=== PATIENT | female | born 1940 | race Caucasian/White ===

== ENCOUNTER 2016-08-24 13:50 | Emergency (ER) | payer MEDICARE ==
[2016-08-24] MEDS ORDERED: OXYCODONE HCL 5 MG TABLET PO ONE (14:18)
[2016-08-24 14:19] VITALS: TEMP 98.1; BMI 34.7
--- NOTE | 2016-08-24 14:30 | EDPRACDOC ---
- General Information Chief Complaint: Lower Extremity Injury Stated Complaint: LEG PAIN Time Seen by Provider: 08/24/16 14:04 Home Medications: Home Medications Amlodipine Besylate [Norvasc] 5 mg PO DAILY 02/20/16 Atorvastatin Calcium [Lipitor] 40 mg PO QHS 02/20/16 Citalopram Hydrobromide [Celexa] 20 mg PO DAILY 02/20/16 Gabapentin [Neurontin] 300 mg PO TID 02/20/16 Lisinopril [Prinivil] 2.5 mg PO DAILY 02/20/16 Lansoprazole [Prevacid] 30 mg PO DAILY 03/09/16 Aspirin (OrangeEnteric Coated) [Ecotrin] 325 mg PO DAILYWM #30 tablet 03/10/16 Beta-Carotene(A) W-C & E/Min [Ocuvite Tablet (1000IU/200mg/60IU)] 1 tab PO DAILY 05/07/16 Calcium 500 mg PO DAILY 05/07/16 Cholecalciferol (Vitamin D3) [Vitamin D3] 5,000 unit PO DAILY 05/07/16 Cyanocobalamin (Vitamin B-12) [Vitamin B-12] 1,000 mcg PO DAILY 05/07/16 Multivit-Min/FA/Lycopene/Lut [Centrum Silver Tablet] 1 tab PO DAILY 05/07/16 Acetaminophen Tablet [TYLENOL Tablet] 975 mg PO Q6H #60 tablet 05/12/16 Ferrous Sulfate [Iron] 325 mg PO DAILY 06/03/16 Oxycodone HCl [Oxycodone Immediate Release] 15 mg PO Q4H PRN 06/03/16 Carvedilol [Coreg] 6.25 mg PO BID #60 tablet 06/09/16 Docusate Sodium [Colace] 100 mg PO BID PRN #60 capsule 06/09/16 Nitroglycerin Sublingual Tab [NTG (NitroStat Sublingual Tab)] 0.4 mg SL PRN PRN #30 tablet 06/09/16 Furosemide [Lasix] 40 mg PO MOWEFR 08/24/16 Oxycodone HCl/Acetaminophen [Percocet 5-325 mg Tablet] 1 each PO Q4 #20 tablet 08/24/16 POTASSIUM CHLORIDE Tablet [K-DUR 20 mEq Tablet*] 20 meq PO MOWEFR 08/24/16 Allergies/Adverse Reactions: Allergies Allergy/AdvReac Type Severity Reaction Status Date / Time No Known Allergies Allergy Verified 06/03/16 16:33 - History of Present Illness HPI: PATIENT PRESENTS WITH A HX OF RIGHT ANKLE ORIF AFTER FRACTURE IN 03/07. APPARENTLY PATIENT HAD LOOSENING OF HARDWARE AND REQUIRED REVISION BY JARRETT IN 04/07. PATIENT STILL WEARS A BOOT. SHE STATES SHE FELT A POP WHILE TRYING TO TRANSFER TO TOILET THIS AM. PAIN ALONG ANTERIOR ANKLE ON THE RIGHT Circumstances: Reports: Spontaneous History of: Reports: Other (ANKLE ORIF) Last Tetanus: UTD Severity: Reports: Moderate Able to Bear Weight: Limited ED Past Medical History - History Reviewed Yes Nurses notes reviewed and agree except as marked Travel Outside of [place] in the Last 3 Months?: No - Patient Medical History Cardiac History: Reports: Hypertension, Congestive Heart Failure, Heart Attack ( [place] 2007), Hypercholesterolemia Respiratory History: Reports: COPD GI/ History: Reports: Renal Disease (CKD with creatinine raising from 1.5 range to 2.0 range throughout 2016.), Gastroesophageal Reflux Musculoskeletal History: Reports: Arthritis, Osteoarthritis Psychological History: Reports: Anxiety. Denies: Depression, Substance Use Disorder Systemic History: Reports: Anemia. Denies: Diabetes, Hyperthyroidism Surgical History: Reports: Cholecystectomy, Tonsillectomy/Adnoidectomy, Other - Family Medical History Reports: Hypertension (MOTHER), Diabetes (FATHER), Cancer (PATERNAL GP STOMACH CA, MATERNAL GP PROSTATE AND LIVER CA). Denies: Stroke, Cardiac Disorders - Social Medical History Smoking Status: Former smoker Social History: Denies: Substance Use Disorder ETOH: None Substance Abuse: None Lives With: Family Lives In: Home EDM Review of Systems - Review of Systems ROS Negative Except as Marked: Yes All systems reviewed and were negative except as marked Constitutional: No Symptoms Reported. negative: Fever, Chills, Weakness, Fatigue, Loss of Appetite Eyes: No Symptoms Reported. negative: Redness, Blurred Vision, Double Vision, Discharge, Pain, Light Sensitive, Photophobia Ears: No Symptoms Reported. negative: Pain, Hearing Loss, Drainage, Ear Pulling Throat: No Symptoms Reported. negative: Pain, Swelling Nose: No Symptoms Reported. negative: Congestion, Bleeding, Discharge, Injection, Swelling, Deformity, Ecchymosis, Tender, Abrasion, Laceration Mouth: No Symptoms Reported. negative: Pain, Drooling Respiratory: No Symptoms Reported. negative: Cough, Brassy Cough, Barky Cough, Shortness of Breath, Wheezing, Hemoptysis Cardiovascular: No Symptoms Reported. negative: Chest Pain, Palpitations, Syncope, Edema, Orthopnea, PND, Skin Mottling, Cyanosis Gastrointestinal: No Symptoms Reported. negative: Pain, Constipation, Nausea, Vomiting, Diarrhea, Melena, Formula Intolerance Genitourinary: No Symptoms Reported. negative: Dysuria, Hematuria, Frequency, Discharge, Bleeding, Testicular Pain, Neurological: No Symptoms Reported. negative: Headache, Dizziness, Seizure, Numbness, Weakness, Speech Difficulty, Gait Difficulty Musculoskeletal: Ankle, Leg. negative: Arm, Back, Chestwall, Elbow, Forearm, Femur, Foot, Hand, Hip, Knee, Neck, Pelvis, Ribs, Shoulder, Wrist Integumentary: No Symptoms Reported. negative: Itching, Rash, Bruising, Wound Allergic/Immunologic: No Symptoms Reported. negative: Hives, Itching Hematologic: No Symptoms Reported. negative: Lymphadenopathy, Easy Bruising, Easy Bleeding Endocrine: No Symptoms Reported. negative: Weight Gain, Weight Loss Psychiatric: No Symptoms Reported. negative: Anxiety, Depression, Hallucinations, Insomnia, Suicidal - Physical Exam Constitutional: Alert (Awake), No apparent distress Oriented to: Time, Person, Place Last recorded Vital Signs: Oxygen Pulse Oxygen Saturation O2 Device Oxygen Flow Rate Fraction of Inspired Oxygen ( FIO2) - HEENT Head: Normal ( normocephalic) Eye Exam: Normal (PERRL, EOMI, Sclera white) Oropharynx: Normal (Pharynx:Moist without exudate,Gums-no swelling) Tympanic Membrane: Normal ENT EAC: Normal TMJ: Normal Nose: No Symptoms Reported (septum midline) Neck: Normal (FROM, trachea at midline) - Respiratory/Cardiovascular Respiratory: Normal - CTA (BBS clear to auscultation without adventitious sounds ) Cardiovascular: Normal (RRR without murmur, gallop or rub) - GI Auscultation: Normal (NABS) Palpation: Normal (Soft,No rebound or guarding, non distended) Tenderness: Non tender Tobias's Sign: Negative - Musculoskeletal Back: Normal (Non-Tender) Extremities: Normal (Normal tone, Pulses 2+ No cyanosis or edema, FROM) - Integumentary Skin: Normal, Warm, Dry Lymphatics: Normal (no adenopathy) - Neurologic Memory Impaired: Normal Motor Function: Normal (Normal tone, Pulses 2+ No cyanosis or edema, FROM) Cranial Nerve: Normal (CN II-X11 intact sensation, strength 5/5) Cerebellar: Normal Mood Description: Normal Perception: Normal Decision Time to Discharge: 15:48 - Departure Yes I personally saw and evaluated the patient. Disposition: Home Condition: Stable Final Diagnosis: Leela-prosthetic fracture of proximal tibia Instructions: RICE: Routine Care for Injuries, Leg Fracture (ED) Education/Counseling Given To: Patient Education/Counseling Given Regarding: Diagnosis, Treatment, Prognosis, Follow Up Referrals: Sam Jiang MD [Primary Care Provider] - One Week Daniel Whitney MD [Staff Physician] - One Week Prescriptions: Oxycodone HCl/Acetaminophen [Percocet 5-325 mg Tablet] 1 each PO Q4 #20 tablet - Physician Consulted LABOR STANDARDS DIRECTOR Time Called: 15:01 Provider Called: Ernesto Addison Time Barrel Racer Returned Call: 15:01 (PUT IN POSTERIOR SPLINT) Other Time Called: 15:48 Provider Called: yahaira whitfield (discharge planning) Time Barrel Racer Returned Call: 15:48 (arrange halfway)
[2016-08-24] MEDS ORDERED: HYDROmorphone 1 MG INJECTION IM ONE (14:56)
--- NOTE | 2016-08-24 15:44 | DIRPT ---
CLINICAL DATA: Pop in lower leg wall moving bathroom chair. Pain in lower leg. Surgery in February and again May 2016. EXAM: RIGHT ANKLE - COMPLETE 3+ VIEW COMPARISON: 05/11/2016 FINDINGS: Hindfoot fusion with retrograde osiris extending through the calcaneus, talus, and tibia. Nondisplaced fracture of the tibia along the proximal margin of the osiris observed. This partially extends along the medial margin of the proximal screw. Heterotopic calcification along the resected distal fibula margin distally. Posterior malleolar fracture appears healed. Bony demineralization noted. IMPRESSION: 1. Acute nondisplaced fracture along the proximal margin of the intramedullary nail in the tibia. Electronically Signed By: Zuhair Connor M.D. On: 08/24/2016 15:41
--- NOTE | 2016-08-24 15:47 | DIRPT ---
CLINICAL DATA: Surgery in February in March. [place] a pop while moving today. Pain in mid tibia/ fibula. EXAM: RIGHT TIBIA AND FIBULA - 2 VIEW COMPARISON: Ankle CT of 06/04/2016. Tibia/fibula CT of 03/03/2016. Knee plain films of 02/20/2016. FINDINGS: AP and lateral views centered about the upper tibia/ fibula. Lateral and less so medial compartment knee osteoarthritis. Remote proximal fibular shaft fracture, which has undergone interval healing. Small knee joint effusion. Mild patellofemoral osteoarthritis. Incompletely imaged plate and screw fixation of the tibial shaft. Nondisplaced fracture about the superior aspect of the fixation device. IMPRESSION: Incompletely imaged tibial fixation. Nondisplaced acute fracture about the superior most aspect of the fixation device. Remote posttraumatic and degenerative changes as detailed above. Electronically Signed By: Ernesto Hernández M.D. On: 08/24/2016 15:44
[2016-08-24 18:07] VITALS: BP 126/58; PULSE 84
== END 2016-08-24 18:10 | disposition home or self-care (01) ==
LOC: ED 13:50
DX: M97.21XA Periprosthetic fracture around internal prosthetic right ankle joint, initial encounter (principal)
CPT/HCPCS: 73590; 73610; 99284; A9270; J1170; J3490

== ENCOUNTER 2016-09-21 14:58 | Inpatient (IN) | payer MEDICARE ==
[2016-09-21] MEDS ORDERED: SODIUM CHLORIDE 0.9% 3 ML FLUSH FLUSH PRN (15:10)
[2016-09-21 15:26] LABS: ALLEN'S TEST PASS; BEb 8.2 (+/- 2); TCO2 39.3 MMOL/L (23-27)
[2016-09-21 15:28] LABS: ABG Draw Site Right Brachial
[2016-09-21 15:29] LABS: AUTOMATED BASOPHIL 0.9 % (0-2); AUTOMATED EOSINOPHIL 2.3 % (0-5); AUTOMATED LYMPH 8.8 % (17-44); AUTOMATED MONOCYTE 0.5 % (3-10); AUTOMATED NEUTROPHIL 87.5 % (45-76); MPV 9.1 fL (7.4-10.4)
--- NOTE | 2016-09-21 15:30 | EDPRACDOC ---
- General Information Information Source: Patient Mode Of Arrival: Stretcher - History of Present Illness Onset: THIS AM HPI: Patient reports lower abdominal pain, nausea/vomiting, no diarrhea. Started around 4am. Patient denies urinary symptoms. No fever. Reports does feel slightly more SOB than usual - wears O2 at home @ 2L, on 3L here to maintain sats above 90%. Symptoms Occured: Reports: Spontaneous Pain Quality: Reports: Aching, Cramping Pain Location: Reports: Suprapubic Associated Signs & Symptoms: Reports: Nausea, Vomiting. Denies: Frequency, Diarrhea, Dysuria, Urgency, Chills Oral Intake: Normal Urinary Output: Normal <Mamta Morales - Last Filed: 09/21/16 15:55> <Ezra Herrera - Last Filed: 09/21/16 19:16> - General Information Chief Complaint: Nausea,Vomiting,Diarrhea Stated Complaint: N/V Time Seen by Provider: 09/21/16 15:09 Home Medications: Home Medications Atorvastatin Calcium [Lipitor] 40 mg PO QHS 02/20/16 Citalopram Hydrobromide [Celexa] 20 mg PO DAILY 02/20/16 Gabapentin [Neurontin] 300 mg PO TID 02/20/16 Lisinopril [Prinivil] 2.5 mg PO DAILY 02/20/16 Lansoprazole [Prevacid] 30 mg PO DAILY 03/09/16 Ferrous Sulfate [Iron] 325 mg PO DAILY 06/03/16 Docusate Sodium [Colace] 100 mg PO BID PRN #60 capsule 06/09/16 Furosemide [Lasix] 40 mg PO BID 08/24/16 POTASSIUM CHLORIDE Tablet [K-DUR 20 mEq Tablet*] 20 meq PO MOWEFR 08/24/16 Acetaminophen Tablet [TYLENOL Tablet] 650 mg PO Q4H PRN 09/21/16 Aspirin (Enteric Coated) [Ecotrin] 162 mg PO DAILY 09/21/16 Calcium Carbonate/Vitamin D3 [Oyster Shell Calcium-Vit D Tab] 1 tab PO BID 09/21 Multivitamin [One Daily] 1 tab PO DAILY 09/21/16 Nitroglycerin Sublingual Tab [NTG (NitroStat Sublingual Tab)] 0.4 mg SL Q5MX3 PRN 09/21/16 Oxycodone HCl [Oxycodone Immediate Release] 10 mg PO Q4H PRN 09/21/16 Allergies/Adverse Reactions: Allergies Allergy/AdvReac Type Severity Reaction Status Date / Time No Known Allergies Allergy Verified 09/21/16 15:29 - Treatment Prior to ED Arrival Reported Medications/Treatment BULK PICKER Treated With Medication BULK PICKER YES Medications BULK PICKER (Medication/ OXYCODONE 10MG-THIS AM Dose/Time) <Mamta Morales - Last Filed: 09/21/16 15:55> - Treatment Prior to ED Arrival Reported Medications/Treatment BULK PICKER Treated With Medication BULK PICKER YES Medications BULK PICKER (Medication/ OXYCODONE 10MG-THIS AM Dose/Time) <Ezra Herrera - Last Filed: 09/21/16 19:16> ED Past Medical History - History Reviewed Yes Nurses notes reviewed and agree except as marked - Patient Medical History Cardiac History: Reports: Hypertension, Congestive Heart Failure, Heart Attack ( [place] 2007), Hypercholesterolemia Respiratory History: Reports: COPD GI/ History: Reports: Renal Disease (CKD with creatinine raising from 1.5 range to 2.0 range throughout 2016.), Gastroesophageal Reflux Musculoskeletal History: Reports: Arthritis, Osteoarthritis Psychological History: Reports: Anxiety. Denies: Depression, Substance Use Disorder Systemic History: Reports: Anemia. Denies: Diabetes, Hyperthyroidism Surgical History: Reports: Cholecystectomy, Tonsillectomy/Adnoidectomy, Other - Family Medical History Reports: Hypertension (MOTHER), Diabetes (FATHER), Cancer (PATERNAL GP STOMACH CA, MATERNAL GP PROSTATE AND LIVER CA). Denies: Stroke, Cardiac Disorders - Social Medical History Smoking Status: Former smoker Social History: Denies: Substance Use Disorder ETOH: None <Marissa Moralesy Flako - Last Filed: 09/21/16 15:55> EDM Review of Systems - Review of Systems ROS Negative Except as Marked: Yes All systems reviewed and were negative except as marked Constitutional: No Symptoms Reported Eyes: No Symptoms Reported Ears: No Symptoms Reported Throat: No Symptoms Reported Nose: No Symptoms Reported Mouth: No Symptoms Reported Respiratory: Shortness of Breath Cardiovascular: No Symptoms Reported Gastrointestinal: Nausea, Pain, Vomiting. negative: Constipation, Diarrhea Genitourinary: No Symptoms Reported Neurological: No Symptoms Reported Musculoskeletal: No Symptoms Reported <Marissa Moralesy Flako - Last Filed: 09/21/16 15:55> - Physical Exam Constitutional: Alert (Awake), No apparent distress Oriented to: Time, Person, Place Last recorded Vital Signs: Last Vital Signs Temp 98.2 F 09/21/16 15:00 Pulse 82 09/21/16 15:24 Resp 20 09/21/16 15:24 BP 109/89 09/21/16 15:24 Pulse Ox 75 L 09/21/16 15:24 Oxygen Pulse Oxygen Saturation 75 O2 Device Nasal Cannula Oxygen Flow Rate 3 Fraction of Inspired Oxygen ( FIO2) - HEENT Head: Normal ( normocephalic) Eye Exam: Normal (PERRL, EOMI, Sclera white) Nose: No Symptoms Reported (septum midline) Neck: Normal (FROM, trachea at midline) - Respiratory/Cardiovascular Respiratory: Diminished Cardiovascular: Normal (RRR without murmur, gallop or rub) - GI Auscultation: Normal (NABS) Tenderness: Mild, Suprapubic - Musculoskeletal Back: Normal (Non-Tender) Extremities: Normal (Normal tone, Pulses 2+ No cyanosis or edema, FROM) - Integumentary Skin: Normal, Warm, Dry Lymphatics: Normal (no adenopathy) - Neurologic Memory Impaired: Normal Motor Function: Normal (Normal tone, Pulses 2+ No cyanosis or edema, FROM) Mood Description: Normal <Mamta Morales - Last Filed: 09/21/16 15:55> - Physical Exam Last recorded Vital Signs: Last Vital Signs Temp 98.2 F 09/21/16 15:00 Pulse 93 09/21/16 16:39 Resp 18 09/21/16 16:39 BP 78/51 L 09/21/16 16:39 Pulse Ox 98 09/21/16 16:39 Oxygen Pulse Oxygen Saturation 98 O2 Device BiPAP Oxygen Flow Rate 3 Fraction of Inspired Oxygen ( 60 FIO2) <Ezra Herrera - Last Filed: 09/21/16 19:16> - Results 09/21/16 15:15 09/21/16 15:15 - EKG EKG #1 EKG Time: 15:33 -: Yes EKG interpreted by me Rate: bpm: 73 [place]: Normal Rhythm: Junctional Block: None Comments: Unable to assess EKG dt poor quality d/t patient movement <Mamta Morlaes - Last Filed: 09/21/16 15:55> - Re-evaluation Re-evaluation 1 Re-evaluation Time: 17:20 PT AND FAMILY REPORT BEING ON HIGH FLOW O2 BY EMS DURING TRANSPORT. THIS MAY ACCOUNT FOR HER HYPERCAPNIA. WILL DECREASE O2 TO NASAL CANNULA AND OBTAIN CT ABDOMEN/PELVIS. - Results 09/21/16 15:15 09/21/16 15:15 WBC 2.7 xk/uL (3.8-10.8) L 09/21/16 15:15 RBC 4.05 xM/uL (4.20-5.40) L 09/21/16 15:15 Hgb 12.2 g/dL (12.0-16.0) 09/21/16 15:15 Hct 39.3 % (36-47) 09/21/16 15:15 MCV 97 fL (81-99) 09/21/16 15:15 MCH 30.2 pg (27-32) 09/21/16 15:15 MCHC 31.1 g/dl (33-36) L 09/21/16 15:15 RDW 16.4 % (11.5-14.5) H 09/21/16 15:15 Plt Count 125 xk/uL (130-400) L 09/21/16 15:15 MPV 9.1 fL (7.4-10.4) 09/21/16 15:15 Neut % (Auto) 87.5 % (45-76) H 09/21/16 15:15 Lymph % (Auto) 8.8 % (17-44) L 09/21/16 15:15 [place] % (Auto) 0.5 % (3-10) L 09/21/16 15:15 Eos % (Auto) 2.3 % (0-5) 09/21/16 15:15 Baso % (Auto) 0.9 % (0-2) 09/21/16 15:15 Absolute Neuts (auto) 2.35 xk/uL (1.7-8.2) 09/21/16 15:15 Absolute Lymphs (auto) 0.22 xk/uL (0.65-4.75) L 09/21/16 15:15 PT 10.7 SEC (9.2-11.2) 09/21/16 15:15 INR 1.0 09/21/16 15:15 APTT 20.5 SEC (22-35) L 09/21/16 15:15 Puncture Site Right brachial 09/21/16 15:20 pH 7.320 pH UNITS (7.35-7.45) L 09/21/16 15:20 pCO2 72.0 mmHg (35-45) H* 09/21/16 15:20 pO2 70.0 mmHg (80-100) L 09/21/16 15:20 HCO3 37.1 MMOL/L (22-26) H 09/21/16 15:20 Total CO2 39.3 MMOL/L (23-27) H 09/21/16 15:20 Base Excess 8.2 (+/- 2) H 09/21/16 15:20 FiO2 % 3 lpm 09/21/16 15:20 Specimen Drawn By Stana 09/21/16 15:20 Sodium 144 mEq/L (137-146) 09/21/16 15:15 Potassium 5.1 mEq/L (3.5-5.1) 09/21/16 15:15 Chloride 104 mEq/L (98-107) 09/21/16 15:15 Carbon Dioxide 32 mMOL/L (22-33) 09/21/16 15:15 Anion Gap 13 mEq/L (8-16) 09/21/16 15:15 BUN 33 MG/DL (7-17) H 09/21/16 15:15 Creatinine 1.30 MG/DL (0.52-1.04) H 09/21/16 15:15 Estimated GFR (MDRD) 40 mL/min (>=60) L 09/21/16 15:15 Glucose 118 MG/DL (70-99) H 09/21/16 15:15 Calculated Osmolality 285 MOs/Kg (270-290) 09/21/16 15:15 Lactic Acid 1.9 mEq/L (0.7-2.1) 09/21/16 15:15 Calcium 8.4 MG/DL (8.4-10.2) 09/21/16 15:15 Corrected Calcium 8.6 MG/DL (8.4-10.2) 09/21/16 15:15 Total Bilirubin 0.9 MG/DL (0.2-1.3) 09/21/16 15:15 AST 37 IU/L (14-36) H 09/21/16 15:15 ALT 30 IU/L (9-52) 09/21/16 15:15 Alkaline Phosphatase 150 IU/L (55-165) 09/21/16 15:15 Creatine Kinase 58 IU/L (30-134) 09/21/16 15:15 Troponin I < 0.01 ng/mL (<.04) 09/21/16 15:15 Total Protein 6.8 G/DL (6.3-8.2) 09/21/16 15:15 Albumin 3.8 G/DL (3.5-5.0) 09/21/16 15:15 Lipase 107 U/L (23-300) 09/21/16 15:15 Urine Color Yellow 09/21/16 15:54 Urine Clarity Clear 09/21/16 15:54 Urine pH 7.0 (5.0-8.0) 09/21/16 15:54 Ur Specific [place] 1.010 (1.003-1.035) 09/21/16 15:54 Urine Protein Neg (NEG/TRACE) 09/21/16 15:54 Urine Glucose (UA) Neg (NEGATIVE) 09/21/16 15:54 Urine Ketones Neg (NEGATIVE) 09/21/16 15:54 Urine Occult Blood Neg (NEG/TRACE) 09/21/16 15:54 Urine Nitrite Neg (NEGATIVE) 09/21/16 15:54 Urine Bilirubin Neg (NEGATIVE) 09/21/16 15:54 Urine Urobilinogen 0.2 MG/DL (0-1) 09/21/16 15:54 Ur Leukocyte Esterase Neg (NEGATIVE) 09/21/16 15:54 Urine RBC 0-2 (0-5) 09/21/16 15:54 Urine WBC 0-2 (0-5) 09/21/16 15:54 Hyaline Casts 2-5 (0-2) H 09/21/16 15:54 Urine Mucus Occ (NEG/OCC) 09/21/16 15:54 Lab Results 09/21/16 09/21/16 09/21/16 15:54 15:20 15:15 WBC RBC Hgb Hct MCV MCH MCHC RDW Plt Count MPV Neut % (Auto) Lymph % (Auto) [place] % (Auto) Eos % (Auto) Baso % (Auto) Absolute Neuts (auto) Absolute Lymphs (auto) PT INR APTT Puncture Site Right brachial pH 7.320 L pCO2 72.0 H* pO2 70.0 L HCO3 37.1 H Total CO2 39.3 H Base Excess 8.2 H FiO2 % 3 lpm Specimen Drawn By Stana Sodium Potassium Chloride Carbon Dioxide Anion Gap BUN Creatinine Estimated GFR (MDRD) Glucose Calculated Osmolality Lactic Acid Calcium Corrected Calcium Total Bilirubin AST ALT Alkaline Phosphatase Creatine Kinase Troponin I Total Protein Albumin Lipase 107 Urine Color Yellow Urine Clarity Clear Urine pH 7.0 Ur Specific [place] 1.010 Urine Protein Neg Urine Glucose (UA) Neg Urine Ketones Neg Urine Occult Blood Neg Urine Nitrite Neg Urine Bilirubin Neg Urine Urobilinogen 0.2 Ur Leukocyte Esterase Neg Urine RBC 0-2 Urine WBC 0-2 Hyaline Casts 2-5 H Urine Mucus Occ 09/21/16 09/21/16 09/21/16 15:15 15:15 15:15 WBC 2.7 L RBC 4.05 L Hgb 12.2 Hct 39.3 MCV 97 MCH 30.2 MCHC 31.1 L RDW 16.4 H Plt Count 125 L MPV 9.1 Neut % (Auto) 87.5 H Lymph % (Auto) 8.[address] [place] % (Auto) 0.5 L Eos % (Auto) 2.3 Baso % (Auto) 0.9 Absolute Neuts (auto) 2.35 Absolute Lymphs (auto) 0.22 L PT 10.7 INR 1.0 APTT 20.5 L Puncture Site pH pCO2 pO2 HCO3 Total CO2 Base Excess FiO2 % Specimen Drawn By Sodium Potassium Chloride Carbon Dioxide Anion Gap BUN Creatinine Estimated GFR (MDRD) Glucose Calculated Osmolality Lactic Acid 1.9 Calcium Corrected Calcium Total Bilirubin AST ALT Alkaline Phosphatase Creatine Kinase Troponin I Total Protein Albumin Lipase Urine Color Urine Clarity Urine pH Ur Specific [place] Urine Protein Urine Glucose (UA) Urine Ketones Urine Occult Blood Urine Nitrite Urine Bilirubin Urine Urobilinogen Ur Leukocyte Esterase Urine RBC Urine WBC Hyaline Casts Urine Mucus 09/21/16 15:15 WBC RBC Hgb Hct MCV MCH MCHC RDW Plt Count MPV Neut % (Auto) Lymph % (Auto) [place] % (Auto) Eos % (Auto) Baso % (Auto) Absolute Neuts (auto) Absolute Lymphs (auto) PT INR APTT Puncture Site pH pCO2 pO2 HCO3 Total CO2 Base Excess FiO2 % Specimen Drawn By Sodium 144 Potassium 5.1 Chloride 104 Carbon Dioxide 32 Anion Gap 13 BUN 33 H Creatinine 1.30 H Estimated GFR (MDRD) 40 L Glucose 118 H Calculated Osmolality 285 Lactic Acid Calcium 8.4 Corrected Calcium 8.6 Total Bilirubin 0.9 AST 37 H ALT 30 Alkaline Phosphatase 150 Creatine Kinase 58 Troponin I < 0.01 Total Protein 6.8 Albumin 3.8 Lipase Urine Color Urine Clarity Urine pH Ur Specific [place] Urine Protein Urine Glucose (UA) Urine Ketones Urine Occult Blood Urine Nitrite Urine Bilirubin Urine Urobilinogen Ur Leukocyte Esterase Urine RBC Urine WBC Hyaline Casts Urine Mucus <Ezra Herrera - Last Filed: 09/21/16 19:16> ED Critical Care Note - Critical Care Note Total Time (mins): 25 Comments: Due to the presence of and / or the risk of deterioration, my attendance to this patient required critical care time, including assessment/reassessment, documentation, ordering and interpreting ancillary studies, discussion with ED staff and consultants,patient and family, and excludes time spent on separately billable procedures. <Ezra Herrera - Last Filed: 09/21/16 19:16> <Mamta Morales - Last Filed: 09/21/16 15:55> - Departure Yes I personally saw and evaluated the patient. Disposition: Admit IP To This Hospital Decision to Admit Time: 18:30 Decision to admit date: 09/21/16 Decision to admit: from ED <Ezra Herrera - Last Filed: 09/21/16 19:16> - Departure Condition: Stable Final Diagnosis: Ruptured appendicitis, Renal mass, Pancreatic mass, Hypercapnic respiratory failure Referrals: None,No Provider [NonStaff] - One Week Prescriptions: No Action Lisinopril [Prinivil] 2.5 mg PO DAILY Citalopram Hydrobromide [Celexa] 20 mg PO DAILY Gabapentin [Neurontin] 300 mg PO TID Atorvastatin Calcium [Lipitor] 40 mg PO QHS Lansoprazole [Prevacid] 30 mg PO DAILY Ferrous Sulfate [Iron] 325 mg PO DAILY Docusate Sodium [Colace] 100 mg PO BID PRN #60 capsule PRN Reason: Stool Softener Furosemide [Lasix] 40 mg PO BID POTASSIUM CHLORIDE Tablet [K-DUR 20 mEq Tablet*] 20 meq PO MOWEFR Multivitamin [One Daily] 1 tab PO DAILY Aspirin (Enteric Coated) [Ecotrin] 162 mg PO DAILY Acetaminophen Tablet [TYLENOL Tablet] 650 mg PO Q4H PRN PRN Reason: Pain Oxycodone HCl [Oxycodone Immediate Release] 10 mg PO Q4H PRN PRN Reason: Pain Nitroglycerin Sublingual Tab [NTG (NitroStat Sublingual Tab)] 0.4 mg SL Q5MX3 PRN PRN Reason: Chest Pain Or Discomfort Calcium Carbonate/Vitamin D3 [Oyster Shell Calcium-Vit D Tab] 1 tab PO BID
[2016-09-21 15:42] LABS: BLOOD UREA NITROGEN 33 MG/DL (7-17); CALC CORRECTED 8.6 MG/DL (8.4-10.2); CALCIUM 8.4 MG/DL (8.4-10.2); CHLORIDE 104 mEq/L (98-107); CPK TOTAL WITH POSSIBLE MB 58 IU/L (30-134); GLUCOSE 118 MG/DL (70-99); PARTIAL THROMB. TIME 20.5 SEC (22-35); SODIUM LEVEL 144 mEq/L (137-146); TOTAL PROTEIN 6.8 G/DL (6.3-8.2)
[2016-09-21 15:49] LABS: CALCULATED OSMOLALITY 285 MOs/Kg (270-290)
[2016-09-21 16:19] LABS: RBC/URINE 0-2 (0-5)
[2016-09-21 16:20] LABS: LEUKOCYTES/URINE NEG (NEGATIVE); NITRITE/URINE NEG (NEGATIVE); URINE OCCULT BLOOD NEG (NEG/TRACE); WBC/URINE 0-2 (0-5)
[2016-09-21] MEDS: NS 1,000 ML IV ONE (16:24)
--- NOTE | 2016-09-21 16:43 | DIRPT ---
CLINICAL DATA: Shortness of breath, lower abdominal pain, nausea and vomiting beginning at 0400 hours, history hypertension, CHF, [place], former smoker EXAM: PORTABLE CHEST 1 VIEW COMPARISON: Portable exam 1614 hours compared to 08/25/2016 FINDINGS: Mild enlargement of cardiac silhouette. Mediastinal contours and pulmonary vascularity normal. Bronchitic changes without infiltrate, pleural effusion or pneumothorax. Bones demineralized. No free air under the diaphragms. IMPRESSION: Mild enlargement of cardiac silhouette. Mild bronchitic changes. Electronically Signed By: Pedro Hicks M.D. On: 09/21/2016 16:41
[2016-09-21] MEDS ORDERED: NS 1,000 ML IV ONE ×4 (16:51→22:15)
[2016-09-21] MEDS ORDERED: MORPHINE 4 MG/ML INJECTION IV ONE ×2 (16:51→18:05)
[2016-09-21] MEDS ORDERED: Pharmacy Review for Metformin - IV Contrast Given SCH (17:00)
[2016-09-21] MEDS ORDERED: SODIUM CHLORIDE 0.9% 3 ML FLUSH FLUSH SCH (18:00)
[2016-09-21 18:03] LABS: CPK TOTAL WITH POSSIBLE MB 40 IU/L (30-134)
--- NOTE | 2016-09-21 18:15 | DIRPT ---
CLINICAL DATA: 76-year-old female with lower abdominal pain with associated nausea vomiting and diarrhea for the past 12 hours. EXAM: CT ABDOMEN AND PELVIS WITH CONTRAST TECHNIQUE: Multidetector CT imaging of the abdomen and pelvis was performed using the standard protocol following bolus administration of intravenous contrast. CONTRAST: 70 mL of Isovue 370. COMPARISON: CT of the chest, abdomen and pelvis 02/21/2016. FINDINGS: Lower chest: Large hiatal hernia. Extensive atherosclerosis, including right coronary artery disease. Severe calcifications of the mitral annulus. Hepatobiliary: No cystic or solid hepatic lesions. Moderate intrahepatic biliary ductal dilatation. Common bile duct is dilated up to 2 cm in the jocelyne hepatis. Status post cholecystectomy. Pancreas: Severe pancreatic atrophy. Pancreatic parenchyma is largely replaced by multiple cystic appearing lesions throughout all aspects of the pancreas, the largest of which is in the superior aspect of the pancreatic head measuring up to 2.1 x 1.8 cm (image 26 of series 3). Multifocal side branch ectasia throughout the pancreas. Spleen: Unremarkable. Adrenals/Urinary Tract: Multiple low-attenuation nonenhancing lesions are noted in the kidneys bilaterally, the largest of which is exophytic in the upper pole of the left kidney measuring 7.3 x 6.1 x 8.1 cm, compatible with multiple simple cysts. There are several other smaller sub cm lesions which are too small to definitively characterize, but favored to represent tiny cysts. Tiny high attenuation lesion in the anterior aspect of the lower pole of the right kidney is similar to remote prior studies, apparently calcified and presumably benign. In addition, there is a 3.2 x 1.9 x 1.6 cm enhancing lesion with thick internal septation and nodularity in the anterior aspect of the upper pole of the right kidney (image 25 of series 3), concerning for renal neoplasm such as a renal cell carcinoma. 12 mm intermediate attenuation lesion in the lower pole of the left kidney does not appear to enhance, compatible with a proteinaceous cyst. No hydroureteronephrosis. Urinary bladder is completely decompressed with a Lehman balloon catheter in place. Stomach/Bowel: Intra abdominal portion of the stomach is unremarkable. No pathologic dilatation of small bowel or colon. The appendix appears dilated measuring up to 12 mm in diameter, and there are some surrounding inflammatory changes. Several small loculated gas are noted in the ileocolic mesenteries. Findings are concerning for perforated acute appendicitis. Diffuse haziness throughout the root of the small bowel mesenteric. Vascular/Lymphatic: Extensive atherosclerosis throughout the abdominal and pelvic vasculature, without evidence of aneurysm or dissection. Reproductive: Uterus and ovaries are unremarkable in appearance. Other: Small volume of ascites. Small volume of pneumoperitoneum. Umbilical hernia containing only omental fat. Musculoskeletal: High attenuation in the sacrum bilaterally, suggestive of prior sacroplasty. Old compression fractures of L1 and L3, most severe at L1 where there is approximately 80% loss of anterior vertebral body height and a mild acute kyphotic deformity. Sclerotic lesions with narrow zones of transition are noted in the right femoral head left side of the L3 vertebral body, right side of T11 vertebral body and in the left T11 pedicle, favored to represent bone islands. IMPRESSION: 1. Findings, as above, concerning for an acute perforated appendicitis with small volume of pneumoperitoneum and small volume of free fluid. Diffuse haziness throughout the small bowel mesentery concerning for developing peritonitis. Surgical consultation is strongly recommended at this time. 2. Moderate intrahepatic biliary ductal dilatation and severe extrahepatic biliary ductal dilatation. This is slightly worse than prior examinations, and may partially reflect benign post cholecystectomy physiology, however, the possibility of biliary tract obstruction should be considered and correlation with liver function tests is recommended. 3. 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 This could be further evaluated with followup nonemergent MRI of the abdomen with and without IV gadolinium with MRCP after the patient's acute illness has been resolved. 4. 3.2 x 1.9 x 1.6 cm enhancing lesion in the anterior aspect of the upper pole of the right kidney, concerning for renal cell carcinoma. This too could be further evaluated with followup nonemergent MRI of the abdomen with and without IV gadolinium after the patient's acute illness has been resolved. 5. Extensive atherosclerosis, including right coronary artery disease. 6. Large hiatal hernia. 7. Multiple cystic lesions in the kidneys bilaterally, as above. 8. Additional incidental findings, as above. These results were called by telephone at the time of interpretation on 09/21/2016 at 6:[address] LEX FIERRO DO, who verbally acknowledged these results. Electronically Signed By: Jordin Casillas M.D. On: 09/21/2016 18:12
[2016-09-21] MEDS ORDERED: PIPERACILLIN AND TAZOBACTAM 4.5 GM in D5W 100 ML IV ONE (18:34)
[2016-09-21] MEDS ORDERED: ACETAMINOPHEN 325 MG/TAB TABLET PO PRN (18:39)
[2016-09-21] MEDS ORDERED: PROMETHAZINE 25 MG/ML VIAL IV PRN ×2 (18:41→20:18)
[2016-09-21] MEDS ORDERED: NITROGLYCERINE 0.4 MG TAB SL PRN (18:41)
[2016-09-21] MEDS ORDERED: Non-Formulary Medication ITEM (Oxycodone Hcl [Oxycodone Immediate Release] 10 MG) PO PRN (18:41)
[2016-09-21] MEDS ORDERED: OXYCODONE HCL 5 MG TABLET PO PRN (18:47)
--- NOTE | 2016-09-21 18:47 | HISTPHYS ---
- Chief Complaint Abd Pain - History of Present Illness 76 YO WF brought to the ER with worsening shortness of breath as well as N/V and abdominal pain. The sequence of events is uncertain. Unable to get history from patient as she is obtunded. She is currently dehydrated and has a decreased WBC. She is in respiratory failure (hypercapnic). She has received IVF, IV antibiotics and was placed on BiPAP. CT scan has been reviewed. While her appendix is slightly enlarged, the amount of inflammation is minimal. There is some fluid but no evidence of obstruction. She is critically ill. No other history is available. - Medical History Cardiac History: Reports: Hypertension, Congestive Heart Failure, Heart Attack ( [place] 2007), Hypercholesterolemia Respiratory History: Reports: COPD GI/ History: Reports: Renal Disease (CKD with creatinine raising from 1.5 range to 2.0 range throughout 2016.), Gastroesophageal Reflux Musculoskeletal History: Reports: Arthritis, Osteoarthritis Systemic History: Reports: Anemia. Denies: Diabetes, Hyperthyroidism Psychological History: Reports: Anxiety. Denies: Depression, Substance Use Disorder - Surgical History Reports: Cholecystectomy, Tonsillectomy/Adnoidectomy, Other - Medictions/Allergies Allergies No Known Allergies Allergy (Verified 09/21/16 15:29) Home Medications Atorvastatin Calcium [Lipitor] 40 mg PO QHS 02/20/16 Citalopram Hydrobromide [Celexa] 20 mg PO DAILY 02/20/16 Gabapentin [Neurontin] 300 mg PO TID 02/20/16 Lisinopril [Prinivil] 2.5 mg PO DAILY 02/20/16 Lansoprazole [Prevacid] 30 mg PO DAILY 03/09/16 Ferrous Sulfate [Iron] 325 mg PO DAILY 06/03/16 Docusate Sodium [Colace] 100 mg PO BID PRN #60 capsule 06/09/16 Furosemide [Lasix] 40 mg PO BID 08/24/16 POTASSIUM CHLORIDE Tablet [K-DUR 20 mEq Tablet*] 20 meq PO MOWEFR 08/24/16 Acetaminophen Tablet [TYLENOL Tablet] 650 mg PO Q4H PRN 09/21/16 Aspirin (Enteric Coated) [Ecotrin] 162 mg PO DAILY 09/21/16 Calcium Carbonate/Vitamin D3 [Oyster Shell Calcium-Vit D Tab] 1 tab PO BID 09/21 Multivitamin [One Daily] 1 tab PO DAILY 09/21/16 Nitroglycerin Sublingual Tab [NTG (NitroStat Sublingual Tab)] 0.4 mg SL Q5MX3 PRN 09/21/16 Oxycodone HCl [Oxycodone Immediate Release] 10 mg PO Q4H PRN 09/21/16 - Family History Reports: Hypertension (MOTHER), Diabetes (FATHER), Cancer (PATERNAL GP STOMACH CA, MATERNAL GP PROSTATE AND LIVER CA). Denies: Stroke, Cardiac Disorders - Social History Smoking Status: Former smoker Social History: Denies: Substance Use Disorder - Review of Systems Yes Review of systems cannot be obtained due to the patient's medical condition (obtunded) - Physical Exam Vital Signs: Initial Vitals Temperature 98.2 F 09/21/16 15:00 Pulse Rate 76 09/21/16 15:00 Respiratory Rate 20 09/21/16 15:00 Blood Pressure 104/69 09/21/16 15:00 Pulse Oxygen Saturation 46 L 09/21/16 15:00 Constitutional: Other (obese, obtunded, in resp distress.) Oriented to: Unable to Test - HEENT Head: Normal. negative: Laceration, Swelling Eye: negative: Pale Conjunctiva, Scleral Icterus TMJ: negative: Crepitance, Tender Nose: negative: Congestion, Ecchymosis Respiratory: Diminished, Retractions, Rhonchi, Tachypnea, Other (agonal) Cardiovascular: Tachycardia. negative: Diastolic murmur, Systolic murmur - GI Auscultation: Normal Palpation: negative: Enlarged liver Tenderness: Mild, RLQ, Periumbilical (ventral hernia not completely reducible). negative: Guarding, Rebound - Musculoskeletal Back: negative: Ecchymosis, CVA Tenderness - Integumentary Skin: Warm, Dry, Rash (yeast/fungal rash on skin fold under pannus) - Neurologic Memory Impaired: Unable to Test Motor Function: Unable to Test - Lab Results labs reviewed. - Diagnostic Findings CT reviewed - Assessment/Plan (1) Acute respiratory failure with hypercapnia J96.02 - ACUTE RESPIRATORY FAILURE WITH HYPERCAPNIA Acute Present on Admission: Yes (2) Pancreatic mass K86.9 - DISEASE OF PANCREAS, UNSPECIFIED Chronic Present on Admission: Yes (3) Renal mass N28.89 - OTHER SPECIFIED DISORDERS OF KIDNEY AND URETER Chronic Present on Admission: Yes (4) Sepsis A41.9 - SEPSIS, UNSPECIFIED ORGANISM Acute Present on Admission: Yes (5) Appendicitis K37 - UNSPECIFIED APPENDICITIS Acute Present on Admission: Yes (6) Hernia, ventral K43.9 - VENTRAL HERNIA WITHOUT OBSTRUCTION OR GANGRENE Chronic Present on Admission: Yes (7) CHF (congestive heart failure) I50.9 - HEART FAILURE, UNSPECIFIED Chronic Present on Admission: Yes unspecified congestive heart failure type unspecified congestive heart failure chronicity I50.9 - Heart failure, unspecified (8) CAD (coronary artery disease) I25.10 - ATHSCL HEART DISEASE OF [place] CORONARY ARTERY W/O ANG PCTRS Chronic Present on Admission: Yes [place] artery [place] heart without angina I25.10 - Atherosclerotic heart disease of [place] coronary artery without angina pectoris Plan: Patient critically ill. Will need admission and resuscitation with IVF and IV antibiotics. If respiratory status does not improve, she will need intubation. While she will need to undergo appendectomy, she will need to improve prior to undergoing surgery. With her underlying CAD and CHF she is a poor surgical candidate in her current condition. She also has what appears to be changes consistent with renal cell cancer and probably a pancreatic malignancy. Will obtain medical consult to help with the management of her numerous medical issues.
[2016-09-21] MEDS ORDERED: Levofloxacin 500 mg/100 ml D5W 500 MG/100 ML RTU IV SCH (20:00)
--- NOTE | 2016-09-21 20:11 | HIMCONSMED ---
Consultation Date: 09/21/16 Requesting Physician: Andi Soares Consulting Doctor: Scooter Dixon Consult Reason: Medical Management PRIMARY CARE PROVIDER: Dr. Jiang Patient was followed by Dr. Villareal while she was in [facility] HPI: The patient is a 76 yo woman who presented to the emergency department via EMS due to acute distress and shortness of breath, along with abdominal pain, nausea , vomiting. She had severe right sided abdominal tenderness, and a CT of the abdomen revealed acute appendicitis with perforation. There are currently no family members here, and the patient is completely obtunded, so history is obtained from the medical record and from the emergency department staff. The patient was short of breath at home, and EMS was called. Patient was in respiratory distress and hypoxic, and was started on 100% non-rebreather. She continued to have respiratory distress, and in the emergency department, she was found to be in acute hypercapneic respiratory failure. She was started on BIPAP. She became hypotensive and was requiring IVF boluses. Her breathing and respiratory status improved so, she was weaned. Eventually she became more tachypneic again. Regarding her symptoms: Onset: possibly today. Duration: constant. Location: unknown if patient has abdominal pain. Character: abnormal breathing. Alleviated by: Nothing. Exacerbated by: Nothing. Associated Symptoms: Patient obtunded. None known. Treatments: none at home except usual medications. Chief Complaint: shortness of breath - Past Medical and Surgical History Cardiac History: Reports: Hypertension, Congestive Heart Failure (Diastolic. 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 Denies: Diabetes, Hyperthyroidism Musculoskeletal History: Reports: Arthritis (R ankle fx. Unable to walk.), Osteoarthritis Psychological History: Reports: Anxiety. Denies: Depression, Substance Use Disorder Past Surgical History: Reports: Cholecystectomy, Tonsillectomy/Adnoidectomy, Other (Dr. Whitney: R ankle implant 02/2016, removed 04/2016.) OTHER HISTORY: ECHOCARDIOGRAM 06/03/16: EF 60-65% FINDINGS ------- Procedure:2D images, m-mode, color and spectral Doppler were obtained and reviewed. ECG rhythm:Sinus rhythm. Study quality:This was a technically difficult study with suboptimal views. Left Ventricle:The left ventricular size is normal. Left ventricular wall thickness is normal. There is normal global left ventricular contractility. Overall left ventricular systolic function is normal with, an EF between 60 - 65 %. Right Ventricle:The right ventricle is normal in size and function. Left Atrium:The left atrium is mildly dilated. Right Atrium:The right atrium is normal in size and function. Aortic Valve:The aortic valve is trileaflet and appears structurally normal. There is mild aortic valve sclerosis. Trace to mild aortic regurgitation. The aortic pressure half-time by doppler is 746ms. Mitral Valve:Normal appearing mitral valve. Mild mitral annular calcification present. There is trace mitral regurgitation. Tricuspid Valve:The tricuspid valve appears structurally normal. Mild tricuspid regurgitation present. The right ventricular systolic pressure, as measured by Doppler, is 41mmHg. Pulmonic Valve:The pulmonic valve is normal. There is no pulmonic regurgitation present. Aorta:The aortic root, ascending aorta and aortic arch appear normal. IVC:Normal inferior vena cava with normal inspiratory collapse. Pericardium:There is no pericardial effusion. CONCLUSIONS 1. This was a technically difficult study with suboptimal views. 2. The left ventricular size is normal. 3. Overall left ventricular systolic function is normal with, an EF between 60 - 65 %. 4. The left atrium is mildly dilated. 5. Trace to mild aortic regurgitation. 6. Mild tricuspid regurgitation present. Note: patient has a history of CHF: had ischemic cardiomyopathy with EF 40% in 2007. Allergies No Known Allergies Allergy (Verified 09/21/16 15:29) Home Medications Atorvastatin Calcium [Lipitor] 40 mg PO QHS 02/20/16 Citalopram Hydrobromide [Celexa] 20 mg PO DAILY 02/20/16 Gabapentin [Neurontin] 300 mg PO TID 02/20/16 Lisinopril [Prinivil] 2.5 mg PO DAILY 02/20/16 Lansoprazole [Prevacid] 30 mg PO DAILY 03/09/16 Ferrous Sulfate [Iron] 325 mg PO DAILY 06/03/16 Docusate Sodium [Colace] 100 mg PO BID PRN #60 capsule 06/09/16 Furosemide [Lasix] 40 mg PO BID 08/24/16 POTASSIUM CHLORIDE Tablet [K-DUR 20 mEq Tablet*] 20 meq PO MOWEFR 08/24/16 Acetaminophen Tablet [TYLENOL Tablet] 650 mg PO Q4H PRN 09/21/16 Aspirin (Enteric Coated) [Ecotrin] 162 mg PO DAILY 09/21/16 Calcium Carbonate/Vitamin D3 [Oyster Shell Calcium-Vit D Tab] 1 tab PO BID 09/21 Multivitamin [One Daily] 1 tab PO DAILY 09/21/16 Nitroglycerin Sublingual Tab [NTG (NitroStat Sublingual Tab)] 0.4 mg SL [id number] PRN 09/21/16 Oxycodone HCl [Oxycodone Immediate Release] 10 mg PO Q4H PRN 09/21/16 - Social History Travel Outside of [place] in the Last 3 Months?: No Smoking Status: Former smoker (quit over 25 years ago.) Social History: Denies: Alcohol Use, Substance Use Disorder - Family History Reports: Hypertension (MOTHER), Diabetes (FATHER), Cancer (PATERNAL GP STOMACH CA, MATERNAL GP PROSTATE AND LIVER CA). Denies: Stroke, Cardiac Disorders - Physical Exam Vital Signs: Initial Vitals Temperature 98.2 F 09/21/16 15:00 Pulse Rate 76 09/21/16 15:00 Respiratory Rate 20 09/21/16 15:00 Blood Pressure 104/69 09/21/16 15:00 Pulse Oxygen Saturation 46 L 09/21/16 15:00 Vital Signs - 24 hr 09/21/16 09/21/16 09/21/16 15:00 15:24 15:39 Temperature 98.2 F Pulse Rate 76 82 74 Respiratory 20 20 16 Rate Blood Pressure 104/69 109/89 109/89 Pulse Oxygen 46 L 75 L 95 Saturation 09/21/16 09/21/16 09/21/16 15:57 16:04 16:09 Temperature Pulse Rate 74 73 73 Respiratory 28 H 18 Rate Blood Pressure 80/52 L 76/46 L 97/53 L Pulse Oxygen 97 97 95 Saturation 09/21/16 09/21/16 09/21/16 16:18 16:39 17:45 Temperature Pulse Rate 93 78 Respiratory 24 18 Rate Blood Pressure 78/51 L 91/50 L Pulse Oxygen 88 L 98 96 Saturation 09/21/16 09/21/16 09/21/16 17:55 18:49 19:20 Temperature Pulse Rate 79 78 77 Respiratory 22 22 Rate Blood Pressure 94/78 L 96/58 L 83/59 L Pulse Oxygen 96 100 88 L Saturation Weight: 92.5 kg Height: 5 feet 2 inches BMI: 37.3 - Other Exam Other Exam Findings: GENERAL: Ill-appearing, obese, in acute distress. HEENT: Normocephalic, atraumatic; pupils equal and round. Nares patent, without discharge or bleeding. No oropharyngeal lesions or erythema. Mucous membranes are dry. NECK: is supple, no masses, trachea midline. Large neck circumference. RESPIRATORY: Clear to auscultation bilaterally. Chest wall movements are symmetric. No use of accessory muscles to breathe. Tachypnea witnessed to up to 42 breaths per minute. Irregular breathing pattern somewhat agonal. Decreased breath sounds bilaterally. No wheezing, rales, rhonchi. CARDIOVASCULAR: Normal S1, S2. No murmurs. rubs, or gallops. PMI non-displaced. Carotids: no carotid bruits. Tachycardia. DP pulse 1+ on left, right unobtainable due to patient's leg and foot in a cast. Radial pulses 2+ bilaterally. Cap refill somewhat delayed. GI: soft, non-distended, normal active bowel sounds. No hepatosplenomegaly. Hernia noted in periumbilical area to the right. Marked tenderness in right lower quadrant and moderate tenderness in right upper quadrant. INTEGUMENT: Clean, dry, and intact. MUSCULOSKELETAL: Moving all extremities. No cyanosis. No clubbing. Edema: trace lower extremity edema bilaterally. Right lower leg and foot in a cast. NEUROLOGICAL: Cranial nerves 2-12 grossly intact, as best can be determined in this somnolent to obtunded patient. Reflexes: 2+ bilaterally. Babinski: toe downgoing on left, unable to test on right due to leg and foot in a cast. PSYCHIATRIC: Not oriented. Somnolent to obtunded. Not following commands. Did awaken and was clearly in pain when the right side of her abdomen was palpated. LYMPHATIC: No cervical lymphadenopathy. No supraclavicular lymphadenopathy. - Lab Results Laboratory Results - last 24 hr 09/21/16 09/21/16 09/21/16 15:15 15:15 15:15 WBC 2.7 L RBC 4.05 L Hgb 12.2 Hct 39.3 MCV 97 MCH 30.2 MCHC 31.1 L RDW 16.4 H Plt Count 125 L MPV 9.1 Neut % (Auto) 87.5 H Lymph % (Auto) 8.8 L [place] % (Auto) 0.5 L Eos % (Auto) 2.3 Baso % (Auto) 0.9 Absolute Neuts (auto) 2.35 Absolute Lymphs (auto) 0.22 L PT INR APTT Puncture Site pH pCO2 pO2 HCO3 Total CO2 Base Excess FiO2 % Specimen Drawn By Sodium 144 Potassium 5.1 Chloride 104 Carbon Dioxide 32 Anion Gap 13 BUN 33 H Creatinine 1.30 H Estimated GFR (MDRD) 40 L Glucose 118 H Calculated Osmolality 285 Lactic Acid 1.9 Calcium 8.4 Corrected Calcium 8.6 Total Bilirubin 0.9 AST 37 H ALT 30 Alkaline Phosphatase 150 Creatine Kinase 58 Troponin I < 0.01 Total Protein 6.8 Albumin 3.8 Lipase Urine Color Urine Clarity Urine pH Ur Specific [place] Urine Protein Urine Glucose (UA) Urine Ketones Urine Occult Blood Urine Nitrite Urine Bilirubin Urine Urobilinogen Ur Leukocyte Esterase Urine RBC Urine WBC Hyaline Casts Urine Mucus 09/21/16 09/21/16 09/21/16 15:15 15:15 15:20 WBC RBC Hgb Hct MCV MCH MCHC RDW Plt Count MPV Neut % (Auto) Lymph % (Auto) [place] % (Auto) Eos % (Auto) Baso % (Auto) Absolute Neuts (auto) Absolute Lymphs (auto) PT 10.7 INR 1.0 APTT 20.5 L Puncture Site Right brachial pH 7.320 L pCO2 72.0 H* pO2 70.0 L HCO3 37.1 H Total CO2 39.3 H Base Excess 8.2 H FiO2 % 3 lpm Specimen Drawn By Stana Sodium Potassium Chloride Carbon Dioxide Anion Gap BUN Creatinine Estimated GFR (MDRD) Glucose Calculated Osmolality Lactic Acid Calcium Corrected Calcium Total Bilirubin AST ALT Alkaline Phosphatase Creatine Kinase Troponin I Total Protein Albumin Lipase 107 Urine Color Urine Clarity Urine pH Ur Specific [place] Urine Protein Urine Glucose (UA) Urine Ketones Urine Occult Blood Urine Nitrite Urine Bilirubin Urine Urobilinogen Ur Leukocyte Esterase Urine RBC Urine WBC Hyaline Casts Urine Mucus 09/21/16 09/21/16 15:54 17:45 WBC RBC Hgb Hct MCV MCH MCHC RDW Plt Count MPV Neut % (Auto) Lymph % (Auto) [place] % (Auto) Eos % (Auto) Baso % (Auto) Absolute Neuts (auto) Absolute Lymphs (auto) PT INR APTT Puncture Site pH pCO2 pO2 HCO3 Total CO2 Base Excess FiO2 % Specimen Drawn By Sodium Potassium Chloride Carbon Dioxide Anion Gap BUN Creatinine Estimated GFR (MDRD) Glucose Calculated Osmolality Lactic Acid Calcium Corrected Calcium Total Bilirubin AST ALT Alkaline Phosphatase Creatine Kinase 40 Troponin I < 0.01 Total Protein Albumin Lipase Urine Color Yellow Urine Clarity Clear Urine pH 7.0 Ur Specific [place] 1.010 Urine Protein Neg Urine Glucose (UA) Neg Urine Ketones Neg Urine Occult Blood Neg Urine Nitrite Neg Urine Bilirubin Neg Urine Urobilinogen 0.2 Ur Leukocyte Esterase Neg Urine RBC 0-2 Urine WBC 0-2 Hyaline Casts 2-5 H Urine Mucus Occ - Diagnostic Findings DIAGNOSTIC DATA: EK bpm. Sinus rhythm. Low voltage QRS. Reviewed EKG personally. IMAGING: Chest x-ray, viewed personally: EXAM: PORTABLE CHEST 1 VIEW COMPARISON: Portable exam 1614 hours compared to 08/25/2016 FINDINGS: Mild enlargement of cardiac silhouette. Mediastinal contours and pulmonary vascularity normal. Bronchitic changes without infiltrate, pleural effusion or pneumothorax. Bones demineralized. No free air under the diaphragms. IMPRESSION: Mild enlargement of cardiac silhouette. Mild bronchitic changes. CT abdomen and pelvis: EXAM: CT ABDOMEN AND PELVIS WITH CONTRAST TECHNIQUE: Multidetector CT imaging of the abdomen and pelvis was performed using the standard protocol following bolus administration of intravenous contrast. CONTRAST: 70 mL of Isovue 370. COMPARISON: CT of the chest, abdomen and pelvis 02/21/2016. FINDINGS: Lower chest: Large hiatal hernia. Extensive atherosclerosis, including right coronary artery disease. Severe calcifications of the mitral annulus. Hepatobiliary: No cystic or solid hepatic lesions. Moderate intrahepatic biliary ductal dilatation. Common bile duct is dilated up to 2 cm in the jocelyne hepatis. Status post cholecystectomy. Pancreas: Severe pancreatic atrophy. Pancreatic parenchyma is largely replaced by multiple cystic appearing lesions throughout all aspects of the pancreas, the largest of which is in the superior aspect of the pancreatic head measuring up to 2.1 x 1.8 cm (image 26 of series 3). Multifocal side branch ectasia throughout the pancreas. Spleen: Unremarkable. Adrenals/Urinary Tract: Multiple low-attenuation nonenhancing lesions are noted in the kidneys bilaterally, the largest of which is exophytic in the upper pole of the left kidney measuring 7.3 x 6.1 x 8.1 cm, compatible with multiple simple cysts. There are several other smaller sub cm lesions which are too small to definitively characterize, but favored to represent tiny cysts. Tiny high attenuation lesion in the anterior aspect of the lower pole of the right kidney is similar to remote prior studies, apparently calcified and presumably benign. In addition, there is a 3.2 x 1.9 x 1.6 cm enhancing lesion with thick internal septation and nodularity in the anterior aspect of the upper pole of the right kidney (image 25 of series 3), concerning for renal neoplasm such as a renal cell carcinoma. 12 mm intermediate attenuation lesion in the lower pole of the left kidney does not appear to enhance, compatible with a proteinaceous cyst. No hydroureteronephrosis. Urinary bladder is completely decompressed with a Lehman balloon catheter in place. Stomach/Bowel: Intra abdominal portion of the stomach is unremarkable. No pathologic dilatation of small bowel or colon. The appendix appears dilated measuring up to 12 mm in diameter, and there are some surrounding inflammatory changes. Several small loculated gas are noted in the ileocolic mesenteries. Findings are concerning for perforated acute appendicitis. Diffuse haziness throughout the root of the small bowel mesenteric. Vascular/Lymphatic: Extensive atherosclerosis throughout the abdominal and pelvic vasculature, without evidence of aneurysm or dissection. Reproductive: Uterus and ovaries are unremarkable in appearance. Other: Small volume of ascites. Small volume of pneumoperitoneum. Umbilical hernia containing only omental fat. Musculoskeletal: High attenuation in the sacrum bilaterally, suggestive of prior sacroplasty. Old compression fractures of L1 and L3, most severe at L1 where there is approximately 80% loss of anterior vertebral body height and a mild acute kyphotic deformity. Sclerotic lesions with narrow zones of transition are noted in the right femoral head left side of the L3 vertebral body, right side of T11 vertebral body and in the left T11 pedicle, favored to represent bone islands. IMPRESSION: 1. Findings, as above, concerning for an acute perforated appendicitis with small volume of pneumoperitoneum and small volume of free fluid. Diffuse haziness throughout the small bowel mesentery concerning for developing peritonitis. Surgical consultation is strongly recommended at this time. 2. Moderate intrahepatic biliary ductal dilatation and severe extrahepatic biliary ductal dilatation. This is slightly worse than prior examinations, and may partially reflect benign post cholecystectomy physiology, however, the possibility of biliary tract obstruction should be considered and correlation with liver function tests is recommended. 3. 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 This could be further evaluated with followup nonemergent MRI of the abdomen with and without IV gadolinium with MRCP after the patient's acute illness has been resolved. 4. 3.2 x 1.9 x 1.6 cm enhancing lesion in the anterior aspect of the upper pole of the right kidney, concerning for renal cell carcinoma. This too could be further evaluated with followup nonemergent MRI of the abdomen with and without IV gadolinium after the patient's acute illness has been resolved. 5. Extensive atherosclerosis, including right coronary artery disease. 6. Large hiatal hernia. 7. Multiple cystic lesions in the kidneys bilaterally, as above. 8. Additional incidental findings, as above. These results were called by telephone at the time of interpretation on 09/21/2016 at 6:[address] LEX FIERRO DO, who verbally acknowledged these results. - Assessment (1) Sepsis A41.9 - SEPSIS, UNSPECIFIED ORGANISM Acute Present on Admission: Yes Present on admission. Criteria: Pulse 93. WBCs 2.7. Source: Most likely due to appendicitis/abdominal infection. Plan: Sepsis order set. IV antibiotics: IV Zosyn, IV Flagyl. Levaquin was given in the emergency department. IV fluids to provide volume. Monitor for signs of volume depletion, monitor blood pressure carefully. If still hypotensive with IV fluids consider pressors. Close monitoring. Telemetry. IVF: initial IVF 30 mL/kg x 1, then 250 mL/hr x 1 L, then maintenance IVF. Per Dr. Soares, favor bolus fluids over pressors, but if pressor is needed, he prefers to use William-Synephrine. (2) Acute respiratory failure with hypercapnia J96.02 - ACUTE RESPIRATORY FAILURE WITH HYPERCAPNIA Acute Present on Admission: Yes Patient presented due to shortness of breath and arrived by EMS on 100% non- rebreather. Initial ABG showed hypercapnic respiratory failure, with a pCO2 of 72. She was started on BiPAP in the emergency department, and her numbers improved, so she was placed back on nasal cannula. She then worsened again, and ABG revealed pCO2 of 77 PO2 of 64. Patient was restarted on BiPAP. Plan: BiPAP 16/8. Titrate FiO2 as needed. (3) Ruptured appendicitis K35.2 - ACUTE APPENDICITIS WITH GENERALIZED PERITONITIS Acute Present on Admission: Yes CT of the abdomen/pelvis revealed: "Findings concerning for an acute perforated appendicitis with small volume of pneumoperitoneum and small volume of free fluid. Diffuse haziness throughout the small bowel mesentery concerning for developing peritonitis." Discussed case in detail with Dr. Soares. He reports that while the patient could have appendicitis, she could also have other causes for her abdominal findings. He reports that the patient is too unstable to consider surgery at this time. He recommended IV antibiotics and IV fluids for initial approach. Plan: Admit to ICU. Patient is critically ill and too unstable for surgery. Would not be likely to survive surgery. Cultures ordered. IV antibiotics of IV Zosyn and IV Flagyl. IVF boluses. Prognosis is poor. (4) Thrombocytopenia D69.6 - THROMBOCYTOPENIA, UNSPECIFIED Acute Present on Admission: Yes Mild. Plan: Monitor CBC. (5) Hypotension I95.9 - HYPOTENSION, UNSPECIFIED Acute Present on Admission: Yes Qualifiers: Hypotension type: unspecified hypotension type Qualified Code(s): I95.9 - Hypotension, unspecified Most likely due to sepsis, but could be multifactorial. Patient could also have volume depletion. Plan: IVFs - bolus. If no improvement consider pressors. Per Dr. Soares, favor bolus fluids over pressors, but if pressor is needed, he prefers to use William-Synephrine (6) Metabolic encephalopathy G93.41 - METABOLIC ENCEPHALOPATHY Acute Present on Admission: Yes May be due to hypercapnia, sepsis or other cause. Plan: Search for and address underlying causes. NPO until speech therapy evaluation. 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 This could be further evaluated with followup nonemergent MRI of the abdomen with and without IV gadolinium with MRCP after the patient's acute illness has been resolved." Plan: Patient's family was informed of results by the emergency deparment physician. Patient is acutely ill with a poor prognosis and is in danger of dying. If she does survive her current illness, could consider further evaluation of the possible pancreatic malignancy. 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 This too could be further evaluated with followup nonemergent MRI of the abdomen with and without IV gadolinium after the patient's acute illness has been resolved." Plan: Patient's family was informed of results by the emergency deparment physician. Patient is acutely ill with a poor prognosis and is in danger of dying. If she does survive her current illness, could consider further evaluation of the mass. (9) Acquired dilation of bile duct K83.8 - OTHER SPECIFIED DISEASES OF BILIARY TRACT Acute Present on Admission: Yes Other findings on CT: "Moderate intrahepatic biliary ductal dilatation and severe extrahepatic biliary ductal dilatation. This is slightly worse than prior examinations, and may partially reflect benign post cholecystectomy physiology, however, the possibility of biliary tract obstruction should be considered and correlation with liver function tests is recommended." Plan: Management per Dr. Soares. - Plan In summary, this patient is acutely and critically ill. The patient requires treatment of vital organ failure and measures to prevent further life- threatening deterioration of condition. Reviewed old records. Discussed case in detail with emergency department physician and with general surgeon. I have spent 70 min in the critical care of this patient. Case Care Discussed with: Patient, Other (Emergency department physician and general surgeon.) Total Time: 70 min Critical Care: Yes Code: 291
[2016-09-21] MEDS ORDERED: GUAIFEN 100 MG-DEXTROMETH 10 MG PER 5 ML PO PRN (20:18)
[2016-09-21] MEDS ORDERED: BENZONATATE 100 MG PERLES PO PRN (20:18)
[2016-09-21] MEDS ORDERED: TEMAZEPAM 15 MG CAP PO PRN (20:18)
[2016-09-21] MEDS ORDERED: ATORVASTATIN 40 MG TAB PO SCH (21:00)
[2016-09-21 22:06] LABS: MPV 9.7 fL (7.4-10.4)
[2016-09-21] MEDS: GABAPENTIN 300 MG CAP PO SCH (22:36)
[2016-09-21] MEDS: Metronidazole 500 mg/100 ml 500 MG/100 ML RTU IV SCH (22:44)
[2016-09-21 22:49] LABS: ALLEN'S TEST PASS; BEb 1.5 (+/- 2); TCO2 33.9 MMOL/L (23-27)
[2016-09-21 22:53] LABS: ABG Draw Site Right Radial
[2016-09-21] MEDS ORDERED: Pharmacy Order Set Alert SCH (23:00)
[2016-09-22] MEDS ORDERED: NS 1,000 ML IV ONE ×2 (00:17→05:29)
[2016-09-22 01:03] LABS: ALLEN'S TEST PASS; BEb -0.3 (+/- 2); TCO2 29.9 MMOL/L (23-27)
[2016-09-22 01:09] LABS: ABG Draw Site Right Brachial; BI-PAP 16/8 cm H2O
[2016-09-22] MEDS ORDERED: ALBUTEROL 0.083% 3 ML NEB NEB PRN (01:14)
[2016-09-22] MEDS ORDERED: PIPERACILLIN AND TAZOBACTAM 4.5 GM in D5W 100 ML IV SCH (02:00)
[2016-09-22] MEDS: PIPERACILLIN AND TAZOBACTAM 4.5 GM in D5W 100 ML IV SCH ×3 (02:20→18:27)
[2016-09-22] MEDS ORDERED: NS 1,000 ML IV SCH (03:00)
[2016-09-22] MEDS: Albuterol/Ipratropium Neb 3 ML NEB NEB SCH ×3 (03:06→14:49)
--- NOTE | 2016-09-22 03:59 | HIMOPRPT ---
PROCEDURE: DATE OF PROCEDURE: 09/22/16 PREOPERATIVE DIAGNOSES: Poor Venous Access POSTOPERATIVE DIAGNOSES: Poor Venous Access PROCEDURES: Central Line Placement using ultrasound Guidance (Images Obtained) SURGEON: Andi Soares MD ANESTHESIA: Local COMPLICATIONS: None. ESTIMATED BLOOD LOSS: Minimal OPERATIVE NOTE: Patient was placed supine on the hospital bed. Patient was then prepped and draped in the usual fashion. Using ultrasound guidance I was able to visualize the right internal jugular vein. The skin and subcutaneous tissue was anesthetized using local anesthetic. Large-bore needle was placed directly into the vein using ultrasound guidance. Guidewire was passed through the needle and the needle was removed. We then placed the dilator over the guidewire and then removed the dilator. Central Line was passed over the guidewire and the guidewire was removed. This left the central line in place. All 3 ports were easily aspirated and then flushed with saline. Central line was secured with silk sutures and then a dressing was applied.
[2016-09-22] MEDS ORDERED: METHYLPREDNISOLONE 40 MG/1 ML VIAL IV ONE (04:53)
[2016-09-22] MEDS: PHENYLEPHRINE IV SCH ×3 (05:11→23:58)
[2016-09-22] MEDS: NS IV SCH ×3 (05:11→23:58)
[2016-09-22] MEDS: GABAPENTIN 300 MG CAP PO SCH ×2 (05:21→13:53)
[2016-09-22] MEDS: Metronidazole 500 mg/100 ml 500 MG/100 ML RTU IV SCH ×3 (05:30→20:18)
[2016-09-22 05:47] LABS: ALLEN'S TEST PASS; BEb -3.6 (+/- 2); TCO2 25.5 MMOL/L (23-27)
[2016-09-22 05:49] LABS: ABG Draw Site Left Radial; BI-PAP 16/8 cm H2O
[2016-09-22 06:17] LABS: AUTOMATED BASOPHIL 0.3 % (0-2); AUTOMATED LYMPH 17.5 % (17-44); AUTOMATED MONOCYTE 8.7 % (3-10); AUTOMATED NEUTROPHIL 73.5 % (45-76); MPV 9.8 fL (7.4-10.4)
[2016-09-22 06:31] LABS: BLOOD UREA NITROGEN 34 MG/DL (7-17); CALCIUM 7.2 MG/DL (8.4-10.2); CALCULATED OSMOLALITY 282 MOs/Kg (270-290); CHLORIDE 109 mEq/L (98-107); GLUCOSE 85 MG/DL (70-99); SODIUM LEVEL 143 mEq/L (137-146); TOTAL PROTEIN 4.4 G/DL (6.3-8.2)
[2016-09-22] MEDS ORDERED: FUROSEMIDE 40 MG TAB PO SCH (08:00)
[2016-09-22] MEDS ORDERED: [UNRECOGNIZED DRUG - OTHER] IV ONE (08:10)
[2016-09-22] MEDS ORDERED: NOREPINEPHRINE IV ONE (08:10)
[2016-09-22] MEDS ORDERED: DEXTROSE IV ONE (08:10)
--- NOTE | 2016-09-22 08:24 | GENMEDPROG ---
Chief Complaint: CONFUSION, HYPOTENSION, ABDOMINAL PAIN Subjective Note: Resting in the ICU on BiPAP. Complains only of abdominal pain. Notes Reviewed: Yes Events from last night noted and discussed with Clinical Staff Current Medication List: Reviewed Currently: Reports: SOB, Abdominal Pain. Denies: Cough, Wheezing, Sputum DVT Prophylaxis: Yes - Physical Examination Vital Signs and I&O: Last Vital Signs Temp 97.7 F 09/22/16 07:00 Pulse 88 09/22/16 07:30 Resp 27 H 09/22/16 07:37 BP 73/52 L 09/22/16 07:30 Pulse Ox 96 09/22/16 08:01 Oxygen Pulse Oxygen Saturation 96 O2 Device BiPAP Oxygen Flow Rate 45 Fraction of Inspired Oxygen ( 45 FIO2) Intake & Output 09/20/16 09/21/16 09/22/16 09/23/16 06:59 06:59 06:59 06:59 Intake Total 5743 Output Total 605 Balance 5138 Patient's weight 92.533 kg General: Moderate distress HEENT: Normal Neck: Normal Trachea alignment, Normal inspection Respiratory: Normal - CTA, Diminished, Tachypnea, Other. negative: Rhonchi, Wheezes Cardiovascular: Regular rate, No Gallops,Rubs/Murmurs GI: Normal bowel sounds, Soft, Tenderness (She has diffuse tenderness, especially in the bilateral lower quadrants. Does not seem like an acute abdomen, as the abdomen is soft.) Extremities/Musculoskeletal: Other (Normal Tone. Note that her hands and fingers are mottled and purple appearing.). negative: Edema, Cyanosis Lab/DI/Studies Reviewed: Laboratory Tests 09/21/16 09/22/16 09/22/16 15:15 05:40 05:45 WBC Hgb Hct pH 7.270 L pCO2 52.0 H pO2 64.0 L Potassium 4.4 BUN 34 H Creatinine 1.30 H 1.70 H 09/22/16 05:45 WBC 3.1 L Hgb 11.2 L Hct 36.5 pH pCO2 pO2 Potassium BUN Creatinine - Assessment (1) Sepsis Acute A41.9 - SEPSIS, UNSPECIFIED ORGANISM Comment/Plan: Present on admission. Meeting criteria with low white blood cell count and tachycardia. Source: Possibly due to abdominal infection, though as mentioned below is not felt to explain her presentation. She may also have some pulmonary or intracranial pathology which we will need to investigate once the patient is stable enough. Plan: Sepsis order set. IV antibiotics: IV Zosyn, IV Flagyl. Levaquin was given in the emergency department. IV aggressive IV fluids were given per sepsis protocol, but she has remained hypotensive. As such, she has been started on William-Synephrine, we will start low -dose Levophed as well this morning, since she is hypotensive despite being on 1 pressor. Goal map greater than 60. (2) Acute respiratory failure with hypercapnia Acute J96.02 - ACUTE RESPIRATORY FAILURE WITH HYPERCAPNIA Comment/Plan: Patient presented due to shortness of breath and arrived by EMS on 100% non- rebreather. Initial ABG showed hypercapnic respiratory failure, with a pCO2 of 72. She was started on BiPAP in the emergency department, and her numbers improved, so she was placed back on nasal cannula. She then worsened again, and ABG revealed pCO2 of 77 PO2 of 64. Patient was restarted on BiPAP and gas is now improved. The underlying cause of her hypercapnic respiratory failure is unclear at this time. Will continue empiric treatments with IV steroids and empiric IV antibiotics. Continue BiPAP support. I would like to obtain CT scan of the chest to further delineate her pulmonary status in light of the possibility of pneumonia, effusion, etc. Currently she is too unstable for this. (3) Appendicitis with perforation Acute K35.2 - ACUTE APPENDICITIS WITH GENERALIZED PERITONITIS Comment/Plan: Discussed with her primary surgical team this morning. Dr. Sahu does not feel that her degree of appendicitis with perforation is explanatory of her severe hypotension, respiratory issues. Continue empiric antibiotics for this. We are both in agreement that she in her current state would have a very high risk of with any sort of surgical intervention. As such, will continue maximal medical therapy as able. 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 Recommend MRI of the abdomen with MRCP once the patient is stabilized. Plan: Patient's family was informed of results by the emergency deparment physician. Patient is acutely ill with a poor prognosis and is in danger of dying. If she does survive her current illness, could consider further evaluation of the possible pancreatic malignancy. 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 This too could be further evaluated with followup nonemergent MRI of the abdomen with and without IV gadolinium after the patient's acute illness has been resolved." Plan: Patient's family was informed of results by the emergency deparment physician. Patient is acutely ill with a poor prognosis and is in danger of dying. If she does survive her current illness, could consider further evaluation of the mass. (6) Thrombocytopenia Acute D69.6 - THROMBOCYTOPENIA, UNSPECIFIED Comment/Plan: Mild. Plan: Monitor CBC. (7) Acute kidney injury superimposed on chronic kidney disease Acute N17.9 - ACUTE KIDNEY FAILURE, UNSPECIFIED; N18.9 - CHRONIC KIDNEY DISEASE, UNSPECIFIED Comment/Plan: Renal failure, related to her sepsis and hypotension. Will hold nephrotoxins as able, closely monitor ins and outs. Treat her severe hypotension as mentioned above. (8) Hypotension Acute I95.9 - HYPOTENSION, UNSPECIFIED Qualifiers: Hypotension type: unspecified hypotension type Qualified Code(s): I95.9 - Hypotension, unspecified Comment/Plan: Most likely due to sepsis, but could be multifactorial. Patient could also have volume depletion. Plan: Continue aggressive hydration, continue William-Synephrine and add Levophed this morning. - Plan In summary this patient is acutely and critically ill. The patient requires treatment of vital organ failure and measures to prevent further life- threatening deterioration of the above conditions. I personally reviewed and ordered lab testing, as well as imaging. I reviewed old medical records from previous hospitalizations as available, and spent the time mentioned below in critical care of this patient including counseling and coordination of care. I will call the patient's daughter later this morning to discuss further her poor prognosis given her multiple organ failure. Continue maximal support, though I feel that given her multiple medical issues and organ dysfunction the patient does not make an acceptable surgical candidate at this time. Will also need to discuss code status with the patient's family. Case Care Discussed with: Patient, Family, Nursing Staff Total Time: 95
[2016-09-22] MEDS: Norepinephrine in D5W infusion 8,000 MCG/250 ML BAG IV SCH ×3 (08:30→20:43)
[2016-09-22] MEDS: NS 2,000 ML IV ONE ×2 (08:50→10:00)
[2016-09-22] MEDS ORDERED: Vancomycin HCl 0 MG in D5W 500 ML IV SCH (09:00)
[2016-09-22] MEDS ORDERED: LISINOPRIL 2.5 MG TAB PO SCH (09:00)
--- NOTE | 2016-09-22 09:51 | PCM.SURGRO ---
- Subjective Patient: Reports: Other (Patient more alert.) - Objective / Physical Exam Vital Signs: Temperature: 97.7 F (09/22/16 07:00) HR: 89 (09/22/16 08:30)RR: 27 (09/22/16 07: 37) BP: 88/58 (09/22/16 08:30)Pulse Ox: 93 (09/22/16 08:30) General: Moderate distress, Obese HEENT: Anicteric Sclera Respiratory: Rhonchi Cardiovascular: Regular rate and rhythm Gastrointestinal: Tender (lower abdomen) Laboratory/Diagnostics Reviewed: 09/22/16 05:45 09/22/16 05:45 Laboratory Results - last 24 hr 09/21/16 09/21/16 09/21/16 21:32 21:40 22:25 WBC 2.2 L RBC 3.73 L Hgb 11.5 L Hct 38.0 MCV 102 H MCH 30.9 MCHC 30.4 L RDW 16.6 H Plt Count 107 L MPV 9.7 Neut % (Auto) Lymph % (Auto) [place] % (Auto) Eos % (Auto) Baso % (Auto) Absolute Neuts (auto) Absolute Lymphs (auto) Puncture Site pH pCO2 pO2 HCO3 Total CO2 Base Excess FiO2 % Mode BiPAP Specimen Drawn By Sodium Potassium Chloride Carbon Dioxide Anion Gap BUN Creatinine Estimated GFR (MDRD) Glucose POC Capillary Glucose Calculated Osmolality Lactic Acid 1.7 Calcium Corrected Calcium Total Bilirubin AST ALT Alkaline Phosphatase Troponin I 0.02 Total Protein Albumin Cortisol 09/21/16 09/21/16 09/22/16 22:25 22:40 00:19 WBC RBC Hgb Hct MCV MCH MCHC RDW Plt Count MPV Neut % (Auto) Lymph % (Auto) [place] % (Auto) Eos % (Auto) Baso % (Auto) Absolute Neuts (auto) Absolute Lymphs (auto) Puncture Site Right radial pH 7.220 L* pCO2 77.0 H* pO2 64.0 L HCO3 31.5 H Total CO2 33.9 H Base Excess 1.5 FiO2 % 3l nc Mode BiPAP Specimen Drawn By Whitr Sodium Potassium Chloride Carbon Dioxide Anion Gap BUN Creatinine Estimated GFR (MDRD) Glucose POC Capillary Glucose 99 Calculated Osmolality Lactic Acid Calcium Corrected Calcium Total Bilirubin AST ALT Alkaline Phosphatase Troponin I Total Protein Albumin Cortisol 100.00 H 09/22/16 09/22/16 09/22/16 01:00 05:09 05:40 WBC RBC Hgb Hct MCV MCH MCHC RDW Plt Count MPV Neut % (Auto) Lymph % (Auto) [place] % (Auto) Eos % (Auto) Baso % (Auto) Absolute Neuts (auto) Absolute Lymphs (auto) Puncture Site Right brachial Left radial pH 7.270 L 7.270 L pCO2 61.0 H 52.0 H pO2 58.0 L 64.0 L HCO3 28.0 H 23.9 Total CO2 29.9 H 25.5 Base Excess -0.3 -3.6 L FiO2 % 45% 45% Mode BiPAP 07/04 07/04 Specimen Drawn By Joanie Hawley Sodium Potassium Chloride Carbon Dioxide Anion Gap BUN Creatinine Estimated GFR (MDRD) Glucose POC Capillary Glucose 93 Calculated Osmolality Lactic Acid Calcium Corrected Calcium Total Bilirubin AST ALT Alkaline Phosphatase Troponin I Total Protein Albumin Cortisol 09/22/16 09/22/16 09/22/16 05:45 05:45 08:25 WBC 3.1 L RBC 3.67 L Hgb 11.2 L Hct 36.5 MCV 100 H MCH 30.6 MCHC 30.8 L RDW 16.7 H Plt Count 97 L MPV 9.8 Neut % (Auto) 73.5 Lymph % (Auto) 17.5 [place] % (Auto) 8.7 Eos % (Auto) 0.0 Baso % (Auto) 0.3 Absolute Neuts (auto) 2.26 Absolute Lymphs (auto) 0.53 L Puncture Site pH pCO2 pO2 HCO3 Total CO2 Base Excess FiO2 % Mode BiPAP Specimen Drawn By Sodium 143 Potassium 4.4 Chloride 109 H Carbon Dioxide 26 Anion Gap 12 BUN 34 H Creatinine 1.70 H Estimated GFR (MDRD) 29 L Glucose 85 POC Capillary Glucose Calculated Osmolality 282 Lactic Acid 4.3 H* Calcium 7.2 L Corrected Calcium 9.0 Total Bilirubin 1.0 AST 32 ALT 43 Alkaline Phosphatase 76 Troponin I Total Protein 4.4 L Albumin 2.2 L Cortisol - Assessment and Plan (1) Acute respiratory failure with hypercapnia Acute J96.02 - ACUTE RESPIRATORY FAILURE WITH HYPERCAPNIA Present on Admission: Yes (2) Pancreatic mass Chronic K86.9 - DISEASE OF PANCREAS, UNSPECIFIED Present on Admission: Yes (3) Renal mass Chronic N28.89 - OTHER SPECIFIED DISORDERS OF KIDNEY AND URETER Present on Admission: Yes (4) Sepsis Acute A41.9 - SEPSIS, UNSPECIFIED ORGANISM Present on Admission: Yes (5) Appendicitis Acute K37 - UNSPECIFIED APPENDICITIS Present on Admission: Yes (6) Hernia, ventral Chronic K43.9 - VENTRAL HERNIA WITHOUT OBSTRUCTION OR GANGRENE Present on Admission: Yes (7) CHF (congestive heart failure) Chronic I50.9 - HEART FAILURE, UNSPECIFIED Present on Admission: Yes unspecified congestive heart failure type unspecified congestive heart failure chronicity I50.9 - Heart failure, unspecified (8) CAD (coronary artery disease) Chronic I25.10 - ATHSCL HEART DISEASE OF [place] CORONARY ARTERY W/O ANG PCTRS Present on Admission: Yes craig artery craig heart without angina I25.10 - Atherosclerotic heart disease of cra[place] coronary artery without angina pectoris Plan: As patient's respiratory status has improved and she is more alert, I would plan to go ahead with laparoscopy and possible appendectomy or bowel resection as needed. This was discussed with patient's daughter and she is agreeable with going ahead with surgery.
[2016-09-22] MEDS ORDERED: LIDOCAINE 100 MG PFS IV ONE (10:00)
[2016-09-22] MEDS ORDERED: HETASTARCH IV ONE ×2 (10:00)
[2016-09-22] MEDS ORDERED: ELECTROLYTES IV ONE ×2 (10:00)
[2016-09-22] MEDS ORDERED: ROCURONIUM 50 MG/5 ML VIAL IV ONE (10:00)
[2016-09-22] MEDS ORDERED: FENTANYL 250 MCG/5 ML VIAL IV ONE (10:00)
[2016-09-22] MEDS ORDERED: MIDAZOLAM 2 MG/2 ML VIAL IV ONE (10:00)
[2016-09-22] MEDS ORDERED: CALCIUM CHLORIDE 1000 MG/10 ML (10%) PFS IV ONE (10:00)
[2016-09-22] MEDS ORDERED: SUCCINYLCHOLINE 20 MG/1 ML INJ 10 ML MDV IV ONE (10:00)
[2016-09-22] MEDS ORDERED: SODIUM BICARBONATE 50 MEQ/50 ML (8.4%) PFS IV ONE (10:00)
[2016-09-22] MEDS ORDERED: LACTATE IV ONE ×2 (10:00)
[2016-09-22] MEDS ORDERED: ALBUMIN IV ONE ×2 (10:00)
[2016-09-22] MEDS ORDERED: ETOMIDATE 20 MG/10 ML VIAL IV ONE (10:00)
[2016-09-22] MEDS ORDERED: HYDROmorphone 1 MG INJECTION IV PRN ×2 (10:03)
[2016-09-22] MEDS ORDERED: PROMETHAZINE 25 MG/ML VIAL IV PRN (10:03)
[2016-09-22] MEDS ORDERED: LABETALOL 20 MG/4 ML SYRINGE IV PRN (10:03)
[2016-09-22] MEDS ORDERED: MEPERIDINE 25 MG/ML TUBEX IV PRN (10:03)
[2016-09-22] MEDS ORDERED: ONDANSETRON HCL 4 MG ODT TAB PO PRN (10:03)
[2016-09-22] MEDS ORDERED: FENTANYL 100 MCG/2 ML VIAL IV PRN ×2 (10:03)
[2016-09-22] MEDS ORDERED: ONDANSETRON HCL 4 MG/2 ML VIAL IV PRN (10:03)
[2016-09-22] MEDS ORDERED: hydrALAZINE 20 MG/ML VIAL IV PRN (10:03)
--- NOTE | 2016-09-22 10:04 | SC.ANESPOS ---
[id number] Blood Pressure: 71/50 Pulse: 89 Resp Rate: 29 O2 Sat: 95 Temp: 97.7 F
--- NOTE | 2016-09-22 10:05 | HIM.ANES ---
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 LAST NEEDED OXYGEN 04/25/2016) Gastrointestinal: Yes: Hx Gastroesophageal Reflux Disease, Hx Gastrointestinal Disorders Genitourinary: Yes: Hx Renal Disease (CKD with creatinine raising from 1.5 range to 2.0 range throughout 2016.) Neurological/Musculoskeletal: No: Hx Neurological Disorders Psychological: Yes Hx Anxiety, No Hx Depression, Yes Hx Mental/Emotional Disorders Endocrine: No: Hx Hyperthyroidism Blood/Autoimmune: Yes: Hx Anemia No: Hx AIDS, Hx Hepatitis (type) Smoking Status: Former smoker Past Social History: Denies: Alcohol Use, Substance Use Disorder Alcohol use: None Hx Echocardiogram (date): Yes (2010 ECHO EF 60% LEFT ATRIAL ENLARGEMENT) Hx Chest Xray (date): Yes (02/21/2016 BIBASILAR ATELECTASIS OR SCARRING NO CHANGE FROM PREVIOUS STUDY) Surgical History: Yes: T&A, Cholecystectomy, Other Other Surgical History: TONSILLECTOMY - Focused Physical Exam NPO since: after Midnight Mallampati: Class III Dental: Other (Many missing) Cardiovascular/Chest: Normal Respiratory: Decreased breath sounds Any problems with anesthesia, including nausea and vomiting?: No Any relatives with a history of Malignant Hyperthermia?: No Beta Gal given (if appropriate): N/A (On pressors) Other: Problem List Problem Status Onset Acquired dilation of bile duct Acute Acute respiratory failure with hypercapnia Acute Appendicitis Acute Appendicitis with perforation Acute Hypercapnic respiratory failure Acute Metabolic encephalopathy Acute 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 Acute Ruptured appendicitis Acute Sepsis Acute Thrombocytopenia Acute Hernia, ventral Chronic Pancreatic mass Chronic Renal mass Chronic Acute kidney injury superimposed on chronic kidney disease Acute Anemia Acute Anemia Acute Febrile illness Acute Fever Acute Fracture of ankle, bimalleolar, right, closed Acute Herpes zoster dermatitis Acute Hypertension Acute Hypotension Acute Postoperative hypoxia Acute Respiratory acidosis Acute Status post ankle arthrodesis Acute CAD (coronary artery disease) Chronic CHF (congestive heart failure) Chronic COPD (chronic obstructive pulmonary disease) Chronic Chronic kidney insufficiency Chronic Heart failure Chronic PT/PTT/INR/ PT 10.7 SEC (9.2-11.2) 09/21/16 15:15 INR 1.0 09/21/16 15:15 APTT 20.5 SEC (22-35) L 09/21/16 15:15 CBC/BMP/Other 09/22/16 05:45 09/22/16 05:45 Allergies Allergy/AdvReac Type Severity Reaction Status Date / Time No Known Allergies Allergy Verified 09/21/16 15:29 Home Medications Medication Instructions Recorded Last Taken Type Atorvastatin Calcium [Lipitor] 40 mg PO QHS 02/20/16 08/23/16 History Citalopram Hydrobromide [Celexa] 20 mg PO DAILY 02/20/16 08/24/16 History Gabapentin [Neurontin] 300 mg PO TID 02/20/16 08/24/16 History Lisinopril [Prinivil] 2.5 mg PO DAILY 02/20/16 08/24/16 History Lansoprazole [Prevacid] 30 mg PO DAILY 03/09/16 08/24/16 History Ferrous Sulfate [Iron] 325 mg PO DAILY 06/03/16 08/24/16 History Docusate Sodium [Colace] 100 mg PO BID PRN #60 capsule 06/09/16 Unknown Rx Furosemide [Lasix] 40 mg PO BID 08/24/16 08/24/16 History POTASSIUM CHLORIDE Tablet [K-DUR 20 meq PO MOWEFR 08/24/16 08/24/16 History 20 mEq Tablet*] Acetaminophen Tablet [TYLENOL 650 mg PO Q4H PRN 09/21/16 Unknown History Tablet] Aspirin (Enteric Coated) [Ecotrin] 162 mg PO DAILY 09/21/16 Unknown History Calcium Carbonate/Vitamin D3 1 tab PO BID 09/21/16 Unknown History [Oyster Shell Calcium-Vit D Tab] Multivitamin [One Daily] 1 tab PO DAILY 09/21/16 Unknown History Nitroglycerin Sublingual Tab [NTG 0.4 mg SL Q5MX3 PRN 09/21/16 Unknown History (NitroStat Sublingual Tab)] Oxycodone HCl [Oxycodone Immediate 10 mg PO Q4H PRN 09/21/16 Unknown History Release] Height and Weight Patient's height 5 ft 2 in Patient's weight 204 lb Weight (Calculated Kilograms) 92.533 BMI 37.3 Vital Signs Temperature 97.7 F 09/22/16 10:04 Pulse Rate 89 09/22/16 10:04 Respiratory Rate 29 H 09/22/16 10:04 Blood Pressure 71/50 L 09/22/16 10:04 Pulse Oxygen Saturation 95 09/22/16 10:04 - Anesthetic Plan Anesthesia Type: General ASA Class: 4, E (On Levophed/William, Very high risk candidate - discussed w/ surgeon (daughter)) -: I have examined this patient and reviewed the medical record. The patient has been assessed prior to anesthesia. Risks and benefits of anesthesia and anesthetic technique options have been discussed and all questions answered. The patient accepts the risk and desires me to proceed with the planned anesthetic.
[2016-09-22] MEDS: NS 1,000 ML IV ONE (10:28)
[2016-09-22] MEDS: NS 1,000 ML IV SCH ×2 (10:31→22:43)
--- NOTE | 2016-09-22 10:52 | DIRPT ---
CLINICAL DATA: Difficulty breathing. Evaluate fluid overload. EXAM: PORTABLE CHEST 1 VIEW COMPARISON: 09/21/2016 FINDINGS: There has been placement of a right IJ central venous catheter with tip over the SVC. Patient is slightly rotated to the right. Lungs are hypoinflated without definite effusion or pneumothorax. Subtle new opacification over the right base likely vascular crowding, although cannot exclude atelectasis or early infection. Opacification in the left retrocardiac region compatible with known hiatal hernia. Mild stable cardiomegaly. Remainder of the exam is unchanged. IMPRESSION: Hypoinflation with minimal right base opacification likely vascular crowding, although cannot exclude atelectasis or early infection. Interval placement of right IJ central venous catheter with tip over the SVC. No pneumothorax. Electronically Signed By: Jordin Alcala M.D. On: 09/22/2016 10:50
[2016-09-22] MEDS: Linezolid 600 mg/300 ml Premix 600 MG/300 ML RTU IV SCH ×2 (11:50→22:39)
[2016-09-22 12:05] LABS: ALLEN'S TEST PASS
[2016-09-22 12:08] LABS: % OXYHEMOGLOBIN 97.2 % (95-98); BEb -13.2 (+/- 2); CARBOXY HGB 1.2; O2 CONCENTRATION 10.8 VOL % (15.7-21.6); TCO2 15.9 MMOL/L (23-27)
[2016-09-22 12:09] LABS: ABG Draw Site ALINE; ABG Draw Tech OR CREW; HEMOGLOBIN 7.8 G/DL (12.0-16.0)
[2016-09-22 12:30] LABS: MPV 9.8 fL (7.4-10.4)
[2016-09-22 12:42] LABS: PT-INR 1.8
[2016-09-22 12:46] LABS: BLOOD UREA NITROGEN 25 MG/DL (7-17); CALCIUM 7.1 MG/DL (8.4-10.2); CALCULATED OSMOLALITY 281 MOs/Kg (270-290); CHLORIDE 115 mEq/L (98-107); GLUCOSE 101 MG/DL (70-99); SODIUM LEVEL 144 mEq/L (137-146)
[2016-09-22 13:04] LABS: ALLEN'S TEST PASS
[2016-09-22 13:07] LABS: ABG Draw Site ART; ABG Draw Tech OR; BEb -9.2 (+/- 2)
[2016-09-22 13:08] LABS: % OXYHEMOGLOBIN 96.5 % (95-98); HEMOGLOBIN 8.8 G/DL (12.0-16.0); TCO2 17.1 MMOL/L (23-27)
[2016-09-22 13:34] LABS: SEG NEUTROPHIL 48 % (45-76); TOTAL CELL COUNT 100
[2016-09-22] MEDS ORDERED: FENTANYL 2,500 MCG/250 ML BAG IV ONE (14:37)
[2016-09-22] MEDS ORDERED: Fluconazole 400 mg in NS 400 MG/200 ML RTU IV ONE (15:00)
[2016-09-22] MEDS ORDERED: ALBUTEROL 6.7 GM MDI INH PRN (17:24)
[2016-09-22] MEDS ORDERED: IPRATROPIUM INH PRN (17:24)
[2016-09-22] MEDS ORDERED: MDI INH PRN (17:24)
[2016-09-22 17:32] LABS: ABG Draw Site A-LINE; ALLEN'S TEST PASS; BEb -10.4 (+/- 2)
[2016-09-22 17:33] LABS: MODE SIMV 12 RATE; PS 5 cm H2O
[2016-09-22] MEDS: DOPAMINE IV SCH (17:41)
[2016-09-22] MEDS: RTU IV SCH (17:41)
[2016-09-22 17:44] LABS: MPV 10.2 fL (7.4-10.4)
--- NOTE | 2016-09-22 17:52 | HIMOPRPT ---
PROCEDURE: DATE OF PROCEDURE: 09/22/16 PREOPERATIVE DIAGNOSES: Appendicitis POSTOPERATIVE DIAGNOSES: Perforated sigmoid PROCEDURES:Laparoscopy, Carrasco's procedure, right salpingoophorectomy ] SURGEON: Adni Soares MD ANESTHESIA: GET COMPLICATIONS: None. ESTIMATED BLOOD LOSS: 150cc OPERATIVE NOTE:[Patient was brought to the OR and after induction of anesthesia , she was prepped and draped. A 5 mm trochar was placed in the LUQ and the abdomen was insufflated. The camera was introduced and another 5mm port was placed. The incarcerated ventral hernia was reduced and the adhesions divided with the harmonic scalpel. We then were able to suction out the fluid in the abdominal cavity. We did find some stool and then decided to proceed with a laparotomy. A midline incision was done and the abdominal cavity was entered. A Bookwalter retractor was placed for exposure Stool in both liquid and semisolid form was encountered. A perforation was found in the sigmoid colon. This was oversewn with silk sutures. We then irrigated the abdominal cavity numerous times until the gross contamination was removed. We then inspected the abdomen. No hepatic lesions were noted. The small bowel was unremarkable ( no perforations, strictures, masses or diverticulum). The colon had the perforation in the sigmoid. The appendix was absent. No other perforations were present. The right ovary and salpinx were matted to the sigmoid. These were removed because they were oozing profusely after they had been from the bowel. The right ureter was identified and preserved. The sigmoid was divided proximally and distally to the perforation using a linear stapler. The mesentery was divided between clamps and the vascular pedicles we re suture ligated. Two 19 Fr joycelyn drains were placed . One in the pelvis and the other along the right gutter and over the liver. These were secured to the skin with silk sutures. The descending colon was brought out in the LLQ and would later be matured creating the ostomy. The midline was closed using #1 PDS loops in a running fashion. Also, retention sutures of #1 PDS were placed. The skin and subcutaneous sutures were left open and packed with saline soaked kerlix. Sponge , needle and instrument counts were correct.
--- NOTE | 2016-09-22 17:54 | DIRPT ---
CLINICAL DATA: Status post intubation EXAM: PORTABLE CHEST 1 VIEW COMPARISON: 09/12/2016 FINDINGS: Right IJ catheter tip is in the projection of the SVC. There is an ET tube with tip above the comfort. The nasogastric tube appears under advanced with side port well above the GE junction. Heart size is mildly enlarged. There are low lung volumes. There is decreased aeration to both lung bases noted. IMPRESSION: 1. ET tube tip is in satisfactory position above the comfort. 2. Under advanced nasogastric tube 3. Low lung volumes with decreased aeration of both lung bases. Electronically Signed By: Arely Mcgill M.D. On: 09/22/2016 17:51
[2016-09-22] MEDS ORDERED: MDI INH SCH (18:00)
[2016-09-22] MEDS ORDERED: ALBUTEROL 6.7 GM MDI INH SCH (18:00)
[2016-09-22] MEDS ORDERED: IPRATROPIUM INH SCH (18:00)
[2016-09-22 18:05] LABS: BLOOD UREA NITROGEN 26 MG/DL (7-17); CALC CORRECTED 9.3 MG/DL (8.4-10.2); CALCIUM 6.5 MG/DL (8.4-10.2); CALCULATED OSMOLALITY 279 MOs/Kg (270-290); CHLORIDE 114 mEq/L (98-107); GLUCOSE 110 MG/DL (70-99); SODIUM LEVEL 142 mEq/L (137-146); TOTAL PROTEIN 2.7 G/DL (6.3-8.2)
[2016-09-22 18:32] LABS: SEG NEUTROPHIL 18 % (45-76)
[2016-09-22] MEDS: ALBUTEROL 6.7 GM MDI INH SCH (19:30)
[2016-09-22] MEDS: MDI INH SCH (19:31)
[2016-09-22] MEDS: IPRATROPIUM INH SCH (19:31)
[2016-09-22] MEDS ORDERED: Levofloxacin 750 mg/150 ml D5W 750 MG/150 ML RTU IV SCH (20:00)
[2016-09-22] MEDS: CHLORHEXIDINE (HIBICLENS) 4 OZ BOTTLE TOP SCH (22:39)
[2016-09-23] MEDS: PIPERACILLIN AND TAZOBACTAM 4.5 GM in D5W 100 ML IV SCH ×3 (02:07→18:14)
[2016-09-23] MEDS: IPRATROPIUM INH SCH ×4 (03:18→21:06)
[2016-09-23] MEDS: MDI INH SCH ×4 (03:18→21:06)
[2016-09-23] MEDS: ALBUTEROL 6.7 GM MDI INH SCH ×4 (03:18→21:08)
[2016-09-23] MEDS: Metronidazole 500 mg/100 ml 500 MG/100 ML RTU IV SCH ×4 (03:24→20:23)
[2016-09-23] MEDS: Norepinephrine in D5W infusion 8,000 MCG/250 ML BAG IV SCH ×2 (03:34→21:09)
[2016-09-23] MEDS ORDERED: LORAZEPAM 2 MG/ML VIAL IV PRN (04:46)
[2016-09-23] MEDS ORDERED: CHAPSTICK LIP BALM TOP PRN (04:46)
[2016-09-23 05:14] LABS: ALLEN'S TEST PASS; BEb -12.5 (+/- 2); TCO2 16.6 MMOL/L (23-27)
[2016-09-23 05:15] LABS: ABG Draw Site ALINE
[2016-09-23 05:19] LABS: MPV 10.9 fL (7.4-10.4)
[2016-09-23 05:32] LABS: PARTIAL THROMB. TIME 70.2 SEC (22-35); PT-INR 1.7
[2016-09-23 05:35] LABS: BLOOD UREA NITROGEN 27 MG/DL (7-17); CALC CORRECTED 8.5 MG/DL (8.4-10.2); CALCIUM 5.7 MG/DL (8.4-10.2); CALCULATED OSMOLALITY 276 MOs/Kg (270-290); CHLORIDE 114 mEq/L (98-107); GLUCOSE 107 mg/dL (70-99); SODIUM LEVEL 141 mEq/L (137-146); TOTAL PROTEIN 2.7 G/DL (6.3-8.2)
[2016-09-23] MEDS: FENTANYL 2,500 MCG/250 ML BAG IV SCH ×4 (05:48→23:40)
[2016-09-23] MEDS: CHLORHEXIDINE 0.12% ORAL SOLN 15 ML PO SCH ×2 (05:49→16:41)
[2016-09-23] MEDS ORDERED: ARTIFICIAL TEARS OPH SOLN 15 ML OU SCH (05:56)
[2016-09-23] MEDS: ARTIFICIAL TEARS OPH SOLN 15 ML OU PRN ×2 (06:12→19:34)
--- NOTE | 2016-09-23 06:18 | DIRPT ---
CLINICAL DATA: Intubation EXAM: PORTABLE CHEST 1 VIEW COMPARISON: Yesterday FINDINGS: Endotracheal tube tip is at the clavicular heads. Short orogastric tube with tip at the lower chest and side port at the level of the comfort. Right IJ central line, tip at the SVC level. Hazy opacity of the bilateral lower chest consistent with effusions and atelectasis. Cannot exclude superimposed airspace disease. Chronic cardiomegaly. Distorted appearance of the juan. IMPRESSION: 1. Unchanged nasogastric tube positioning, tip at the lower mediastinum. A moderate hiatal hernia is present and may effect tube positioning. 2. Bibasilar opacity favoring pleural fluid and atelectasis. Electronically Signed By: Venkat Martinez M.D. On: 09/23/2016 06:16
[2016-09-23 06:32] LABS: SEG NEUTROPHIL 37 % (45-76)
[2016-09-23] MEDS: [UNRECOGNIZED DRUG - MIXTURE] IV SCH ×3 (07:00→23:39)
--- NOTE | 2016-09-23 08:53 | GENMEDPROG ---
Chief Complaint: Severe sepsis, perforated bowel Subjective Note: Has been intubated since going to the operating room yesterday. Received multiple boluses overnight, was also started on a 3rd drip overnight. Blood pressures have now been stable. I made her a DNR yesterday after long discussion with her daughter Janey yesterday afternoon over the phone. Notes Reviewed: Yes: Events from last night noted and discussed with Clinical Staff Current Medication List: Reviewed Currently: Reports: SOB. Denies: Cough, Wheezing, Sputum DVT Prophylaxis: Yes - Physical Examination Vital Signs and I&O: Last Vital Signs Temp 96.6 F L 09/23/16 07:00 Pulse 126 H 09/23/16 08:00 Resp 16 09/23/16 08:00 BP 65/59 L 09/23/16 08:00 Pulse Ox 96 09/23/16 08:00 Oxygen Pulse Oxygen Saturation 96 O2 Device Vent Oxygen Flow Rate 45 Fraction of Inspired Oxygen ( 50 FIO2) Intake & Output 09/21/16 09/22/16 09/23/16 09/24/16 06:59 06:59 06:59 06:59 Intake Total 5743 9559 Output Total 605 1710 150 Balance 5138 7849 -150 Patient's weight 92.533 kg 117.118 kg General: Obese (Obese, intubated and sedated. Breathing synchronously with the ventilator.) HEENT: Anicteric Sclera Respiratory: Diminished, Rhonchi Cardiovascular: Regular rate and rhythm (Tachycardic) GI: Soft, Other (Large open midline wound incision. She has a left lower quadrant ostomy in place, the ostomy tissue looks somewhat dusky.) Extremities/Musculoskeletal: Edema (She is developing some edema in her extremities, and on her bottom.), Other (She has a hard cast in place on the right lower extremity. Toes are pink with good capillary refill, I am able to fit a finger circumferentially around her cast on her foot despite her edema.) Psych/Mental Status: Sedated Lab/DI/Studies Reviewed: Laboratory Tests 09/22/16 09/22/16 09/22/16 12:20 17:30 17:30 WBC Hgb 10.4 L D Plt Count INR pH pCO2 pO2 Potassium BUN Creatinine 1.30 H 1.40 H 02/01/17 02/01/17 02/01/17 03:50 03:50 03:50 WBC 3.7 L Hgb 11.5 L D Plt Count 71 L INR 1.7 pH pCO2 pO2 Potassium 4.4 BUN 27 H Creatinine 1.50 H 09/23/16 05:10 WBC Hgb Plt Count INR pH 7.180 L* pCO2 41.0 pO2 73.0 L Potassium BUN Creatinine - Assessment (1) Sepsis Acute A41.9 - SEPSIS, UNSPECIFIED ORGANISM Comment/Plan: She has severe sepsis, which was present at the time of admission. Meeting criteria with low white blood cell count, tachycardia, lactate above 4. Source is now known to be her intra-abdominal colon perforation. She has been treated with sepsis order set. She is on empiric IV antibiotics Zosyn, Flagyl, Zyvox as well as antifungal agent. She is also on some vaso active drugs, including William-Synephrine, Levophed and dopamine. Will work on weaning Levophed today, with William-Synephrine to follow. Per for dopamine for renal protective properties. Although it is causing some tachycardia. Stat lactate is pending this morning. (2) Bowel perforation Acute K63.1 - PERFORATION OF INTESTINE (NONTRAUMATIC) Comment/Plan: Initially felt to be possible appendicitis with perforation, patient was taken to the operating room by Dr. Sahu on September 22 and found to have ruptured sigmoid colon. The cause of this rupture is unclear. She had Cortez's pouch procedure with ostomy formation. She has an open abdominal wound. Discussed with Dr. Sahu at the bedside this morning. Continue broad-spectrum empiric antibiotics and supportive care as mentioned above. (3) Acute respiratory failure with hypercapnia Acute J96.02 - ACUTE RESPIRATORY FAILURE WITH HYPERCAPNIA Comment/Plan: Patient presented due to shortness of breath and arrived by EMS on 100% non- rebreather. Initial ABG showed hypercapnic respiratory failure, with a pCO2 of 72. She was started on BiPAP in the emergency department, and her numbers improved, so she was placed back on nasal cannula. She then worsened again, and ABG revealed pCO2 of 77 PO2 of 64. Patient was restarted on BiPAP and gas is now improved. Underlying cause of her hypercapnic respiratory failure was likely worsening sepsis, she still acidotic at this time but her CO2 was normal. As such, I feel that her acidosis is related to metabolic derangements from her severe sepsis and lactic acidosis. 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 Recommend MRI of the abdomen with MRCP once the patient is stabilized. Plan: Patient's family was informed of results by the emergency deparment physician. Patient is acutely ill with a poor prognosis and is in danger of dying. If she does survive her current illness, could consider further evaluation of the possible pancreatic malignancy. 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 This too could be further evaluated with followup nonemergent MRI of the abdomen with and without IV gadolinium after the patient's acute illness has been resolved." Plan: Patient's family was informed of results by the emergency deparment physician. Patient is acutely ill with a poor prognosis and is in danger of dying. If she does survive her current illness, could consider further evaluation of the mass. (6) Thrombocytopenia Acute D69.6 - THROMBOCYTOPENIA, UNSPECIFIED Comment/Plan: Mild. Plan: Monitor CBC. (7) Acute kidney injury superimposed on chronic kidney disease Acute N17.9 - ACUTE KIDNEY FAILURE, UNSPECIFIED; N18.9 - CHRONIC KIDNEY DISEASE, UNSPECIFIED Comment/Plan: Renal failure, related to her sepsis and hypotension. Will hold nephrotoxins as able, closely monitor ins and outs. Treat her severe hypotension as mentioned above. Thankfully she is currently not oliguric. I do expect her to developed some sepsis and hypotension related ATN. (8) Hypotension Acute I95.9 - HYPOTENSION, UNSPECIFIED Qualifiers: Hypotension type: unspecified hypotension type Qualified Code(s): I95.9 - Hypotension, unspecified Comment/Plan: Most likely due to sepsis, but could be multifactorial. Patient could also have volume depletion. Plan: Continue aggressive hydration, continue William-Synephrine and add Levophed this morning. (9) Ankle fracture Acute S82.899A - OTH FRACTURE OF UNSP LOWER LEG, INIT FOR CLOS FX Comment/ Plan: She is status post right ankle fracture with hardware failure in April of 2016. She still has a cast on, and I am concerned that with her increasing peripheral edema, she may develop a compartment syndrome. I have spoken with Dr. Whitney this morning, who will see the patient in consultation and likely remove her cast if able. - Plan This patient is severely and critically ill, and at risk of dying. I have a extended discussion with nursing staff this morning, as well as a surgeon at the bedside. I also had an extensive discussion with the patient's daughter yesterday afternoon who after a long and detailed discussion decided to make her mother a DNR. In summary this patient is acutely and critically ill. The patient requires treatment of vital organ failure and measures to prevent further life- threatening deterioration of the above conditions. I personally reviewed and ordered lab testing, as well as imaging. I reviewed old medical records from previous hospitalizations as available, and spent the time mentioned below in critical care of this patient including counseling and coordination of care. Total Time: 95
[2016-09-23] MEDS ORDERED: POTASSIUM CHLORIDE 20 MEQ TAB PO SCH (09:00)
[2016-09-23] MEDS: NS 1,000 ML IV SCH ×3 (09:04→19:11)
[2016-09-23] MEDS: NS IV SCH ×3 (10:04→20:36)
[2016-09-23] MEDS: PHENYLEPHRINE IV SCH ×3 (10:04→20:36)
[2016-09-23] MEDS: RTU IV SCH (10:41)
[2016-09-23] MEDS: DOPAMINE IV SCH (10:41)
[2016-09-23] MEDS: Linezolid 600 mg/300 ml Premix 600 MG/300 ML RTU IV SCH ×2 (11:21→22:44)
--- NOTE | 2016-09-23 12:32 | PCM.SURGRO ---
- Subjective Patient: Reports: Other (Patient intubated) - Objective / Physical Exam Vital Signs: Temperature: 96.7 F (09/23/16 10:45) HR: 102 (09/23/16 11:14)RR: 16 (09/23/16 11 :14) BP: 101/54 (09/23/16 11:14)Pulse Ox: 96 (09/23/16 11:14) Respiratory: Diminished, Rhonchi Cardiovascular: Other (tachycardic) Gastrointestinal: Distended, Other (ostomy viable) Surgical wound site: Other (Was left open.) Laboratory/Diagnostics Reviewed: 09/23/16 03:50 09/23/16 03:50 Laboratory Results - last 24 hr 09/22/16 09/22/16 09/22/16 12:20 12:20 12:20 WBC 2.0 L RBC 1.94 L Hgb 5.9 L* D Hct 19.4 L MCV 100 H MCH 30.4 MCHC 30.4 L RDW 16.9 H Plt Count 60 L MPV 9.8 Neut % (Auto) Cancelled Lymph % (Auto) Cancelled Summers % (Auto) Cancelled Eos % (Auto) Cancelled Baso % (Auto) Cancelled Absolute Neuts (auto) Cancelled Absolute Lymphs (auto) Cancelled Seg Neuts % (Manual) 48 Band Neutrophils % 32 H Lymphocytes % (Manual) 12 L Monocytes % (Manual) Eosinophils % (Manual) Metamyelocytes % 4 H Myelocytes % 4 H Absolute Neutrophils 1.60 L Absolute Lymphocytes 0.24 L Nucl RBC Rel Cnt (Man) 1 Vacuolated Neuts 1+ Toxic Granulation 1+ Platelet Estimate Dec RBC Morphology 1+ macro PT 18.2 H INR 1.8 APTT Puncture Site pH pCO2 pO2 HCO3 Total CO2 Base Excess Collected by ABG pH ABG Hemoglobin ABG Oxyhemoglobin ABG Carboxyhemoglobin ABG Methemoglobin Total O2 Concentration Vent Mode FiO2 % Tidal Volume PEEP Neg Inspiratory Force Pressure Support Specimen Drawn By Sodium 144 Potassium 3.7 Chloride 115 H Carbon Dioxide 19 L Anion Gap 14 BUN 25 H Creatinine 1.30 H Estimated GFR (MDRD) 40 L Glucose 101 H Calculated Osmolality 281 Lactic Acid Calcium 7.1 L Corrected Calcium TNP Phosphorus 2.7 Total Bilirubin AST ALT Alkaline Phosphatase Total Protein Albumin < 1.0 L Blood Type Antibody Screen Crossmatch 09/22/16 09/22/16 09/22/16 12:20 12:39 12:50 WBC RBC Hgb Hct MCV MCH MCHC RDW Plt Count MPV Neut % (Auto) Lymph % (Auto) Summers % (Auto) Eos % (Auto) Baso % (Auto) Absolute Neuts (auto) Absolute Lymphs (auto) Seg Neuts % (Manual) Band Neutrophils % Lymphocytes % (Manual) Monocytes % (Manual) Eosinophils % (Manual) Metamyelocytes % Myelocytes % Absolute Neutrophils Absolute Lymphocytes Nucl RBC Rel Cnt (Man) Vacuolated Neuts Toxic Granulation Platelet Estimate RBC Morphology PT INR APTT 85.3 H Puncture Site Art pH pCO2 32.0 L pO2 260.0 H HCO3 16.1 L Total CO2 17.1 L Base Excess -9.2 L Collected by Or ABG pH 7.310 L ABG Hemoglobin 8.8 L ABG Oxyhemoglobin 96.5 ABG Carboxyhemoglobin 1.0 ABG Methemoglobin 1.4 Total O2 Concentration Not Reportable Vent Mode FiO2 % 100 Tidal Volume PEEP Neg Inspiratory Force Pressure Support Specimen Drawn By Sodium Potassium Chloride Carbon Dioxide Anion Gap BUN Creatinine Estimated GFR (MDRD) Glucose Calculated Osmolality Lactic Acid Calcium Corrected Calcium Phosphorus Total Bilirubin AST ALT Alkaline Phosphatase Total Protein Albumin Blood Type AB POSITIVE Antibody Screen Negative Crossmatch See Detail 09/22/16 09/22/16 09/22/16 17:20 17:30 17:30 WBC 2.3 L RBC 3.35 L Hgb 10.4 L D Hct 33.1 L MCV 99 MCH 30.9 MCHC 31.2 L RDW 17.3 H Plt Count 70 L MPV 10.2 Neut % (Auto) Cancelled Lymph % (Auto) Cancelled Summers % (Auto) Cancelled Eos % (Auto) Cancelled Baso % (Auto) Cancelled Absolute Neuts (auto) Cancelled Absolute Lymphs (auto) Cancelled Seg Neuts % (Manual) 18 L Band Neutrophils % 38 H Lymphocytes % (Manual) 15 L Monocytes % (Manual) 2 Eosinophils % (Manual) 1 Metamyelocytes % 22 H Myelocytes % 4 H Absolute Neutrophils 1.29 L Absolute Lymphocytes 0.35 L Nucl RBC Rel Cnt (Man) Vacuolated Neuts 2+ Toxic Granulation 1+ Platelet Estimate Dec RBC Morphology 1+ macro PT INR APTT Puncture Site A-line pH 7.190 L* pCO2 46.0 H pO2 137.0 H HCO3 17.6 L Total CO2 19.0 L Base Excess -10.4 L Collected by ABG pH ABG Hemoglobin ABG Oxyhemoglobin ABG Carboxyhemoglobin ABG Methemoglobin Total O2 Concentration Vent Mode Simv 12 FiO2 % 60 Tidal Volume 490 PEEP 5 Neg Inspiratory Force Pressure Support 5 Specimen Drawn By Darin Sodium 142 Potassium 3.9 Chloride 114 H Carbon Dioxide 19 L Anion Gap 13 BUN 26 H Creatinine 1.40 H Estimated GFR (MDRD) 37 L Glucose 110 H Calculated Osmolality 279 Lactic Acid Calcium 6.5 L* Corrected Calcium 9.3 Phosphorus Total Bilirubin 1.2 AST 41 H ALT 44 Alkaline Phosphatase 26 L Total Protein 2.7 L Albumin 1.2 L Blood Type Antibody Screen Crossmatch 09/23/16 09/23/16 09/23/16 03:50 03:50 03:50 WBC 3.7 L RBC 3.72 L Hgb 11.5 L D Hct 36.5 MCV 98 MCH 30.9 MCHC 31.5 L RDW 17.0 H Plt Count 71 L MPV 10.9 H Neut % (Auto) Cancelled Lymph % (Auto) Cancelled Summers % (Auto) Cancelled Eos % (Auto) Cancelled Baso % (Auto) Cancelled Absolute Neuts (auto) Cancelled Absolute Lymphs (auto) Cancelled Seg Neuts % (Manual) 37 L Band Neutrophils % 42 H Lymphocytes % (Manual) 9 L Monocytes % (Manual) 9 Eosinophils % (Manual) Metamyelocytes % 3 H Myelocytes % Absolute Neutrophils 2.92 Absolute Lymphocytes 0.33 L Nucl RBC Rel Cnt (Man) Vacuolated Neuts Toxic Granulation Tr Platelet Estimate Large plts present RBC Morphology Reviewed this admiss PT 17.4 H INR 1.7 APTT 70.2 H Puncture Site pH pCO2 pO2 HCO3 Total CO2 Base Excess Collected by ABG pH ABG Hemoglobin ABG Oxyhemoglobin ABG Carboxyhemoglobin ABG Methemoglobin Total O2 Concentration Vent Mode FiO2 % Tidal Volume PEEP Neg Inspiratory Force Pressure Support Specimen Drawn By Sodium 141 Potassium 4.4 Chloride 114 H Carbon Dioxide 16 L Anion Gap 15 BUN 27 H Creatinine 1.50 H Estimated GFR (MDRD) 34 L Glucose 107 H Calculated Osmolality 276 Lactic Acid Calcium 5.7 L* Corrected Calcium 8.5 Phosphorus Total Bilirubin 1.3 AST 54 H ALT 47 Alkaline Phosphatase 24 L Total Protein 2.7 L Albumin 1.2 L Blood Type Antibody Screen Crossmatch 09/23/16 09/23/16 05:10 08:47 WBC RBC Hgb Hct MCV MCH MCHC RDW Plt Count MPV Neut % (Auto) Lymph % (Auto) Summers % (Auto) Eos % (Auto) Baso % (Auto) Absolute Neuts (auto) Absolute Lymphs (auto) Seg Neuts % (Manual) Band Neutrophils % Lymphocytes % (Manual) Monocytes % (Manual) Eosinophils % (Manual) Metamyelocytes % Myelocytes % Absolute Neutrophils Absolute Lymphocytes Nucl RBC Rel Cnt (Man) Vacuolated Neuts Toxic Granulation Platelet Estimate RBC Morphology PT INR APTT Puncture Site [place] pH 7.180 L* pCO2 41.0 pO2 73.0 L HCO3 15.3 L Total CO2 16.6 L Base Excess -12.5 L Collected by ABG pH ABG Hemoglobin ABG Oxyhemoglobin ABG Carboxyhemoglobin ABG Methemoglobin Total O2 Concentration Vent Mode FiO2 % Tidal Volume PEEP Neg Inspiratory Force Pressure Support Specimen Drawn By [place] Sodium Potassium Chloride Carbon Dioxide Anion Gap BUN Creatinine Estimated GFR (MDRD) Glucose Calculated Osmolality Lactic Acid 4.3 H* Calcium Corrected Calcium Phosphorus Total Bilirubin AST ALT Alkaline Phosphatase Total Protein Albumin Blood Type Antibody Screen Crossmatch - Assessment and Plan (1) Acute respiratory failure with hypercapnia Acute J96.02 - ACUTE RESPIRATORY FAILURE WITH HYPERCAPNIA Present on Admission: Yes (2) Pancreatic mass Chronic K86.9 - DISEASE OF PANCREAS, UNSPECIFIED Present on Admission: Yes (3) Renal mass Chronic N28.89 - OTHER SPECIFIED DISORDERS OF KIDNEY AND URETER Present on Admission: Yes (4) Sepsis Acute A41.9 - SEPSIS, UNSPECIFIED ORGANISM Present on Admission: Yes (5) Appendicitis Acute K37 - UNSPECIFIED APPENDICITIS Present on Admission: Yes (6) Hernia, ventral Chronic K43.9 - VENTRAL HERNIA WITHOUT OBSTRUCTION OR GANGRENE Present on Admission: Yes (7) CHF (congestive heart failure) Chronic I50.9 - HEART FAILURE, UNSPECIFIED Present on Admission: Yes unspecified congestive heart failure type unspecified congestive heart failure chronicity I50.9 - Heart failure, unspecified (8) CAD (coronary artery disease) Chronic I25.10 - ATHSCL HEART DISEASE OF [place] CORONARY ARTERY W/O ANG PCTRS Present on Admission: Yes [place] artery [place] heart without angina I25.10 - Atherosclerotic heart disease of [place] coronary artery without angina pectoris Plan: Patient remains critically ill. Intubated, on pressors, IVF and IV antibiotics. H/H now stabilized. Will start dressing changes today. Daughter aware of patient's condition. Continue with aggressive supportive care.
[2016-09-23 13:11] LABS: BLOOD UREA NITROGEN 29 MG/DL (7-17); CALCULATED OSMOLALITY 277 MOs/Kg (270-290); CHLORIDE 114 mEq/L (98-107); GLUCOSE 127 mg/dL (70-99); SODIUM LEVEL 140 mEq/L (137-146)
[2016-09-23 13:20] LABS: CALCIUM 5.2 MG/DL (8.4-10.2)
[2016-09-23 13:21] LABS: CALC CORRECTED 8.2 MG/DL (8.4-10.2)
[2016-09-23] MEDS ORDERED: FENTANYL 2,500 MCG/250 ML BAG IV ONE ×2 (13:38→23:35)
[2016-09-23] MEDS: Fluconazole 200 mg in NS 200 MG/100 ML ML IV SCH (14:08)
--- NOTE | 2016-09-23 16:14 | PCM.ORTHCO ---
Consultation Date: 09/23/16 Reason for Consult: Joint Pain (and swelling) - History of Present Illness Mrs. Brown is a 76 year old female who was admitted to the hospital on 09/21/16 due to SOB and ruptured appendicitis. Patient underwent surgery and was found to have an absent appendix and perforated sigmoid colon. Patient has sepsis and acute respiratory failure. She is currently intubated and in ICU. She is familiar to our practice and underwent right ankle hardware removal and arthrodesis on 05/11/[address] Whitney. She had a subsequent leg injury/tibia fracture at the beginning of August of this year. She was being treated in a short leg walking cast for this. She has been having increased pain and swelling in her right ankle however per daughter. History is limited given that she is intubated, however her daughter is present. She has been nonambulatory due to her medical condition. No other orthopedic concerns. Chief Complaint: Abd Pain - Past Medical and Surgical History Cardiac History: Reports: Hypertension, Congestive Heart Failure, Heart Attack ( [place] 2007) Respiratory History: Reports: COPD GI/ History: Reports: Renal Disease (CKD with creatinine raising from 1.5 range to 2.0 range throughout 2016.) Systemic History: Reports: Anemia. Denies: Hyperthyroidism Psychological History: Reports: Anxiety. Denies: Depression, Alcoholism, Substance Use Disorder Past Surgical History: Reports: Cholecystectomy, Tonsillectomy/Adnoidectomy, Other Allergies No Known Allergies Allergy (Verified 09/21/16 15:29) Home Medications Atorvastatin Calcium [Lipitor] 40 mg PO QHS 02/20/16 Citalopram Hydrobromide [Celexa] 20 mg PO DAILY 02/20/16 Gabapentin [Neurontin] 300 mg PO TID 02/20/16 Lisinopril [Prinivil] 2.5 mg PO DAILY 02/20/16 Lansoprazole [Prevacid] 30 mg PO DAILY 03/09/16 Ferrous Sulfate [Iron] 325 mg PO DAILY 06/03/16 Docusate Sodium [Colace] 100 mg PO BID PRN #60 capsule 06/09/16 Furosemide [Lasix] 40 mg PO BID 08/24/16 POTASSIUM CHLORIDE Tablet [K-DUR 20 mEq Tablet*] 20 meq PO MOWEFR 08/24/16 Acetaminophen Tablet [TYLENOL Tablet] 650 mg PO Q4H PRN 09/21/16 Aspirin (Enteric Coated) [Ecotrin] 162 mg PO DAILY 09/21/16 Calcium Carbonate/Vitamin D3 [Oyster Shell Calcium-Vit D Tab] 1 tab PO BID 09/21 Multivitamin [One Daily] 1 tab PO DAILY 09/21/16 Nitroglycerin Sublingual Tab [NTG (NitroStat Sublingual Tab)] 0.4 mg SL [id number] PRN 09/21/16 Oxycodone HCl [Oxycodone Immediate Release] 10 mg PO Q4H PRN 09/21/16 - Social History Smoking Status: Former smoker Social History: Denies: Alcohol Use, Substance Use Disorder - Family History Reports: Hypertension (MOTHER), Diabetes (FATHER), Cancer (PATERNAL GP STOMACH CA, MATERNAL GP PROSTATE AND LIVER CA). Denies: Stroke, Cardiac Disorders - Review of Systems Yes Review of systems cannot be obtained due to the patient's medical condition (patient intubated) - Physical Exam Vital Signs: Initial Vitals Temperature 98.2 F 09/21/16 15:00 Pulse Rate 76 09/21/16 15:00 Respiratory Rate 20 09/21/16 15:00 Blood Pressure 104/69 09/21/16 15:00 Pulse Oxygen Saturation 46 L 09/21/16 15:00 Constitutional: No apparent distress. negative: Well appearing Oriented to: Unable to Test - Musculoskeletal Extremities: Other (She has moderate swelling of the lower extremities. Right short leg cast was removed today. Surgical site is well healed without evidence of infection. No erythema or drainage.) - Lab Results 09/23/16 03:50 09/23/16 12:39 - Assessment/Plan (1) Ankle fracture S82.899A - OTH FRACTURE OF UNSP LOWER LEG, INIT FOR CLOS FX Acute subsequent encounter closed right with routine healing S82.891D - Other fracture of right lower leg, subsequent encounter for closed fracture with routine healing Case Care Discussed with: Patient, Family Plan: Cast removed today. surgical sites well healed. Patient is currently non- ambulatory. No need for further splinting at this time or dressings to right ankle. Ice and elevate as needed for swelling. Will follow-up with patient on outpatient basis or earlier as needed.
[2016-09-23] MEDS: PANTOPRAZOLE 40 MG VIAL IV SCH (16:41)
[2016-09-24] MEDS: NS 1,000 ML IV SCH ×4 (00:17→23:02)
[2016-09-24] MEDS: CHLORHEXIDINE (HIBICLENS) 4 OZ BOTTLE TOP SCH ×2 (01:39→23:12)
[2016-09-24] MEDS: NS IV SCH ×6 (02:06→23:11)
[2016-09-24] MEDS: PHENYLEPHRINE IV SCH ×6 (02:06→23:11)
[2016-09-24] MEDS: ARTIFICIAL TEARS OPH SOLN 15 ML OU PRN ×3 (02:08→23:12)
[2016-09-24] MEDS: ALBUTEROL 6.7 GM MDI INH SCH ×4 (02:28→20:53)
[2016-09-24] MEDS: IPRATROPIUM INH SCH ×4 (02:29→20:53)
[2016-09-24] MEDS: MDI INH SCH ×4 (02:29→20:53)
[2016-09-24] MEDS: PIPERACILLIN AND TAZOBACTAM 4.5 GM in D5W 100 ML IV SCH ×3 (03:27→18:12)
[2016-09-24] MEDS: Metronidazole 500 mg/100 ml 500 MG/100 ML RTU IV SCH ×4 (03:28→23:05)
[2016-09-24 04:08] LABS: MPV 11.8 fL (7.4-10.4)
[2016-09-24 04:15] LABS: BLOOD UREA NITROGEN 30 MG/DL (7-17); CALCULATED OSMOLALITY 271 MOs/Kg (270-290); CHLORIDE 112 mEq/L (98-107); GLUCOSE 88 mg/dL (70-99); SODIUM LEVEL 138 mEq/L (137-146)
[2016-09-24 04:25] LABS: CALCIUM 4.5 MG/DL (8.4-10.2)
[2016-09-24 05:42] LABS: ALLEN'S TEST PASS; BEb -12.7 (+/- 2); TCO2 16.6 MMOL/L (23-27)
[2016-09-24 05:46] LABS: ABG Draw Site Right Radial; MODE SIMV RATE
[2016-09-24] MEDS: CHLORHEXIDINE 0.12% ORAL SOLN 15 ML PO SCH ×2 (05:54→17:46)
[2016-09-24] MEDS: DOPAMINE IV SCH ×3 (05:54→23:03)
[2016-09-24] MEDS: RTU IV SCH ×3 (05:54→23:03)
[2016-09-24] MEDS: SODIUM BICARBONATE 150 MEQ in D5W 1,000 ML IV SCH ×5 (06:27→23:13)
--- NOTE | 2016-09-24 07:10 | DIRPT ---
CLINICAL DATA: Intubation. EXAM: PORTABLE CHEST 1 VIEW COMPARISON: 09/23/2016. 09/22/2016. FINDINGS: Interim advancement of the NG tube, its tip is at the level of the gastroesophageal junction. Further advancement should be considered. Endotracheal tube stable position. Right IJ line in stable position. Persistent cardiomegaly. Bibasilar atelectasis and/or infiltrates with progressive bilateral pleural effusions. Congestive heart failure cannot be excluded. No pneumothorax. IMPRESSION: 1. Interim advancement of NG tube, its tip appears to be at the level of the gastroesophageal junction. Further advancement should be considered . Remaining lines and tubes in stable position. 2. Cardiomegaly with progressive bibasilar atelectasis and/or infiltrates and bilateral pleural effusions. Congestive heart failure cannot be excluded. Electronically Signed By: Walter Grubbs On: 09/24/2016 07:07
[2016-09-24] MEDS ORDERED: Norepinephrine in D5W infusion 8,000 MCG/250 ML BAG IV SCH (08:00)
--- NOTE | 2016-09-24 08:54 | GENMEDPROG ---
Chief Complaint: Severe sepsis, colon perforation, renal failure Subjective Note: Remarkably she is still relatively stable considering all that she has been through. Still severely acidotic, intubated and sedated. Orthopedic surgery was consulted yesterday, they have removed her right lower extremity cast. Levophed has been completely discontinued, now on dopamine and phenylephrine drips. Bicarbonate drip was also increased overnight. Notes Reviewed: Yes: Events from last night noted and discussed with Clinical Staff Current Medication List: Reviewed Currently: Reports: SOB. Denies: Cough, Wheezing, Sputum DVT Prophylaxis: Yes - Physical Examination Vital Signs and I&O: Last Vital Signs Temp 97.8 F 09/24/16 07:00 Pulse 86 09/24/16 07:18 Resp 16 09/24/16 07:18 BP 78/47 L 09/24/16 07:18 Pulse Ox 95 09/24/16 07:18 Oxygen Pulse Oxygen Saturation 95 O2 Device Vent Oxygen Flow Rate 45 Fraction of Inspired Oxygen ( 50 FIO2) Intake & Output 09/22/16 09/23/16 09/24/16 09/25/16 06:59 06:59 06:59 06:59 Intake Total 5743 9559 09038 Output Total 605 1710 1630 Balance 5138 7849 52010 Patient's weight 92.533 kg 117.118 kg 127.55 kg General: Other (Patient intubated and sedated, nonresponsive.) HEENT: EOMI (Sclera white) Neck: Normal Trachea alignment, Normal inspection Respiratory: Diminished, Rhonchi Cardiovascular: Other (tachycardic) GI: Soft, Obese, Other (Open intra-abdominal wound, dressings are weeping. She also has left lower quadrant ostomy with dusky appearance, no output.) Extremities/Musculoskeletal: Swelling, Edema Skin: No rashes, No significant lesion Lab/DI/Studies Reviewed: Laboratory Tests 09/24/16 09/24/16 09/24/16 03:35 03:35 05:40 WBC 11.0 H Hgb 9.0 L D pH 7.170 L* pCO2 42.0 pO2 68.0 L Potassium 4.8 BUN 30 H Creatinine 2.00 H - Assessment (1) Sepsis Acute A41.9 - SEPSIS, UNSPECIFIED ORGANISM Comment/Plan: She has severe sepsis, which was present at the time of admission. Meeting criteria with low white blood cell count, tachycardia, lactate above 4. Source is now known to be her intra-abdominal colon perforation. She has been treated with sepsis order set. She is on empiric IV antibiotics Zosyn, Flagyl, Zyvox as well as antifungal agent. She is also on vaso active drugs, including William-Synephrine, and dopamine. Will bolus as needed for hypotension, but would like to start cutting back on IV fluid maintenance at this time, discussed with nursing to cut normal saline infusion in half to 100 cc/hour, and if her blood pressure holds we will discontinue it completely. Continue normal saline with bicarb 3 amps per L at 125 cc an hour for the time being. (2) Bowel perforation Acute K63.1 - PERFORATION OF INTESTINE (NONTRAUMATIC) Comment/Plan: Initially felt to be possible appendicitis with perforation, patient was taken to the operating room by Dr. Sahu on September 22 and found to have ruptured sigmoid colon. The cause of this rupture is unclear. She had Cortez's pouch procedure with ostomy formation. She has an open abdominal wound. Discussed with Dr. Sahu at the bedside this morning. Continue broad-spectrum empiric antibiotics and supportive care as mentioned above. (3) Acute respiratory failure with hypercapnia Acute J96.02 - ACUTE RESPIRATORY FAILURE WITH HYPERCAPNIA Comment/Plan: Patient presented due to shortness of breath and arrived by EMS on 100% non- rebreather. Initial ABG showed hypercapnic respiratory failure, with a pCO2 of 72. She was started on BiPAP in the emergency department, and her numbers improved, so she was placed back on nasal cannula. She then worsened again, and ABG revealed pCO2 of 77 PO2 of 64. Patient was restarted on BiPAP and improved. She was not extubated after operative procedure on September 22. Underlying cause of her hypercapnic respiratory failure was likely worsening sepsis, she still acidotic at this time but her CO2 was normal. As such, I feel that her acidosis is related to metabolic derangements from her severe sepsis and lactic acidosis. 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 Recommend MRI of the abdomen with MRCP once the patient is stabilized. Plan: Patient's family was informed of results by the emergency deparment physician. Patient is acutely ill with a poor prognosis and is in danger of dying. If she does survive her current illness, could consider further evaluation of the possible pancreatic malignancy. 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 This too could be further evaluated with followup nonemergent MRI of the abdomen with and without IV gadolinium after the patient's acute illness has been resolved." Plan: Patient's family was informed of results by the emergency deparment physician. Patient is acutely ill with a poor prognosis and is in danger of dying. If she does survive her current illness, could consider further evaluation of the mass. (6) Thrombocytopenia Acute D69.6 - THROMBOCYTOPENIA, UNSPECIFIED Comment/Plan: Mild. Plan: Monitor CBC. (7) Acute kidney injury superimposed on chronic kidney disease Acute N17.9 - ACUTE KIDNEY FAILURE, UNSPECIFIED; N18.9 - CHRONIC KIDNEY DISEASE, UNSPECIFIED Comment/Plan: Renal failure, related to her sepsis and hypotension. Will hold nephrotoxins as able, closely monitor ins and outs. Treat her severe hypotension as mentioned above. She now has oliguric acute renal failure, creatinine likely not bumping significantly due to low muscle mass and poor nutritional state as evidence by her non-existent albumin level. Her oliguric renal failure is likely related to ATN from severe hypotension related to her sepsis. Discussed at length with her daughter at the bedside on September 23, she understands and is in agreement that her mother is not a candidate for dialysis. (8) Hypotension Acute I95.9 - HYPOTENSION, UNSPECIFIED Qualifiers: Hypotension type: unspecified hypotension type Qualified Code(s): I95.9 - Hypotension, unspecified Comment/Plan: Most likely due to sepsis, but could be multifactorial. Patient initially also volume depleted. Plan: Continue aggressive hydration, continue William-Synephrine and add Levophed this morning. (9) Ankle fracture Acute S82.899A - OTH FRACTURE OF UNSP LOWER LEG, INIT FOR CLOS FX Qualifiers: Encounter type: subsequent encounter Fracture type: closed Laterality: right Fracture healing: with routine healing Qualified Code(s): S82.891D - Other fracture of right lower leg, subsequent encounter for closed fracture with routine healing Comment/Plan: She is status post right ankle fracture with hardware failure in April of 2016. She still has a cast on, and I am concerned that with her increasing peripheral edema, she may develop a compartment syndrome. Dr. Whitney was consulted, and his team has removed her right lower extremity cast. - Plan In summary this patient is acutely and critically ill. The patient requires treatment of vital organ failure and measures to prevent further life- threatening deterioration of the above conditions. I personally reviewed and ordered lab testing, as well as imaging. I reviewed old medical records from previous hospitalizations as available, and spent the time mentioned below in critical care of this patient including counseling and coordination of care. Total Time: 95
--- NOTE | 2016-09-24 10:33 | PCM.SURGRO ---
- Subjective Post Op Day: 2 Patient: Reports: Other (Remains intubated, mostly unresponsive, still on pressors. Urine output has diminished significantly.) - Objective / Physical Exam Vital Signs: Temperature: 97.5 F (09/24/16 10:00) HR: 84 (09/24/16 10:25)RR: 16 (09/24/16 10: 25) BP: 79/53 (09/24/16 10:25)Pulse Ox: 95 (09/24/16 10:25) Respiratory: Normal - CTA Cardiovascular: Regular rate and rhythm Gastrointestinal: Soft, Other (Left-sided abdominal stoma is dusky). negative: Bowel Sounds Extremities: Edema Laboratory/Diagnostics Reviewed: Laboratory Results - last 24 hr 09/23/16 09/23/16 09/23/16 08:47 12:39 23:36 WBC RBC Hgb Hct MCV MCH MCHC RDW Plt Count MPV Puncture Site pH pCO2 pO2 HCO3 Total CO2 Base Excess Vent Mode FiO2 % Tidal Volume PEEP Specimen Drawn By Sodium 140 Potassium 4.5 Chloride 114 H Carbon Dioxide 18 L Anion Gap 13 BUN 29 H Creatinine 1.80 H Estimated GFR (MDRD) 27 L Glucose 127 H POC Capillary Glucose 106 H Calculated Osmolality 277 Lactic Acid 4.3 H* Calcium 5.2 L* Corrected Calcium 8.2 L Albumin 1.0 L 09/24/16 09/24/16 09/24/16 03:35 03:35 05:40 WBC 11.0 H RBC 2.91 L Hgb 9.0 L D Hct 28.4 L MCV 98 MCH 30.8 MCHC 31.6 L RDW 17.3 H Plt Count 48 L MPV 11.8 H Puncture Site Right radial pH 7.170 L* pCO2 42.0 pO2 68.0 L HCO3 15.3 L Total CO2 16.6 L Base Excess -12.7 L Vent Mode Simv FiO2 % 50 Tidal Volume 490 PEEP 5 Specimen Drawn By Stana Sodium 138 Potassium 4.8 Chloride 112 H Carbon Dioxide 18 L Anion Gap 13 BUN 30 H Creatinine 2.00 H Estimated GFR (MDRD) 24 L Glucose 88 POC Capillary Glucose Calculated Osmolality 271 Lactic Acid Calcium 4.5 L* Corrected Calcium TNP Albumin < 1.0 L - Assessment and Plan (1) Perforated sigmoid colon Acute K63.1 - PERFORATION OF INTESTINE (NONTRAUMATIC) Comment/Plan: Postop day 2. Continue supportive care. Continue medical management of medical comorbid conditions. I suspect she is volume depleted and would likely benefit from volume in spite of her edema. Will follow her urine output. She remains on several pressors currently. Continue antibiotics. Her overall outlook would appear quite dismal.
[2016-09-24] MEDS ORDERED: VASOPRESSIN IV SCH (11:00)
[2016-09-24] MEDS: Linezolid 600 mg/300 ml Premix 600 MG/300 ML RTU IV SCH ×2 (11:00→23:06)
[2016-09-24] MEDS ORDERED: NS IV SCH (11:00)
[2016-09-24] MEDS ORDERED: Vaccine Screening Complete SCH (12:00)
[2016-09-24] MEDS: FENTANYL 2,500 MCG/250 ML BAG IV SCH ×2 (13:26→19:35)
[2016-09-24] MEDS: Fluconazole 200 mg in NS 200 MG/100 ML ML IV SCH (16:52)
[2016-09-24] MEDS: PANTOPRAZOLE 40 MG VIAL IV SCH (17:46)
[2016-09-25] MEDS ORDERED: DEXTROSE 25 GM/50 ML PFS IV ONE (01:16)
[2016-09-25] MEDS: PIPERACILLIN AND TAZOBACTAM 4.5 GM in D5W 100 ML IV SCH (01:43)
[2016-09-25] MEDS ORDERED: FENTANYL 2,500 MCG/250 ML BAG IV ONE (01:45)
[2016-09-25] MEDS: ALBUTEROL 6.7 GM MDI INH SCH ×2 (02:42→09:11)
[2016-09-25] MEDS: IPRATROPIUM INH SCH ×2 (02:45→09:11)
[2016-09-25] MEDS: MDI INH SCH ×2 (02:45→09:11)
[2016-09-25] MEDS: Metronidazole 500 mg/100 ml 500 MG/100 ML RTU IV SCH (03:30)
[2016-09-25 03:48] LABS: MPV 11.6 fL (7.4-10.4)
[2016-09-25 04:12] LABS: BLOOD UREA NITROGEN 28 MG/DL (7-17); CALCULATED OSMOLALITY 267 MOs/Kg (270-290); CHLORIDE 108 mEq/L (98-107); GLUCOSE 124 mg/dL (70-99); SODIUM LEVEL 135 mEq/L (137-146)
[2016-09-25] MEDS: NS IV SCH (04:42)
[2016-09-25] MEDS: PHENYLEPHRINE IV SCH (04:42)
[2016-09-25 05:07] LABS: CALCIUM 4.1 MG/DL (8.4-10.2)
[2016-09-25] MEDS: RTU IV SCH (05:28)
[2016-09-25] MEDS: DOPAMINE IV SCH (05:28)
[2016-09-25] MEDS: FENTANYL 2,500 MCG/250 ML BAG IV SCH (05:31)
[2016-09-25] MEDS: CHLORHEXIDINE 0.12% ORAL SOLN 15 ML PO SCH (05:33)
[2016-09-25 05:47] LABS: ALLEN'S TEST PASS; BEb -21.3 (+/- 2); TCO2 10.8 MMOL/L (23-27)
[2016-09-25] MEDS: ARTIFICIAL TEARS OPH SOLN 15 ML OU PRN (05:50)
[2016-09-25 05:58] LABS: ABG Draw Site Right Radial
[2016-09-25 06:01] LABS: MODE SIMV/16 RATE; PS 5 cm H2O
[2016-09-25] MEDS: SODIUM BICARBONATE 150 MEQ in D5W 1,000 ML IV SCH (06:22)
[2016-09-25 06:30] VITALS: BMI 53.6
[2016-09-25] MEDS ORDERED: D5W IV SCH (07:00)
[2016-09-25] MEDS ORDERED: CALCIUM GLUCONATE IV SCH (07:00)
--- NOTE | 2016-09-25 07:35 | DIRPT ---
CLINICAL DATA: Check endotracheal tube placement EXAM: PORTABLE CHEST 1 VIEW COMPARISON: 09/24/2016 FINDINGS: Cardiac shadow is mildly enlarged but stable. Increasing vascular congestion is noted. Increasing bilateral effusions are also noted. Endotracheal tube is again seen in satisfactory position. Nasogastric catheter extends into the stomach. Right jugular central line is noted without pneumothorax. IMPRESSION: Increasing effusions right greater than left. Diffuse vascular congestion is again noted. Tubes and lines as described. Electronically Signed By: Pedro Han M.D. On: 09/25/2016 07:33
[2016-09-25 07:38] VITALS: TEMP 97.4
[2016-09-25] MEDS ORDERED: FLU VACCINE (Afluria) 0.5 ML DOSE IM ONE (08:00)
[2016-09-25] MEDS ORDERED: MORPHINE 2 MG/ML INJECTION IV PRN (08:45)
[2016-09-25] MEDS ORDERED: LORAZEPAM 2 MG/ML VIAL IV PRN (08:45)
[2016-09-25] MEDS ORDERED: MORPHINE 2 MG/ML INJECTION ONE (09:10)
[2016-09-25 09:15] VITALS: BP 53/34
--- NOTE | 2016-09-25 09:45 | GENMEDPROG ---
Chief Complaint: Severe sepsis and septic shock with multiorgan failure Subjective Note: Patient remains intubated and sedated on the ventilator, now on 3 pressors at maximal support, with high-level bicarbonate drip with persistent acidosis, as well as acute oliguric renal failure. She has had periods of hypotension overnight. Her daughter and granddaughter are at the bedside this morning, had several long conversations with them. Notes Reviewed: Yes: Events from last night noted and discussed with Clinical Staff Current Medication List: Reviewed Currently: Denies: Cough, Wheezing, Sputum DVT Prophylaxis: Yes - Physical Examination Vital Signs and I&O: Last Vital Signs Temp 97.4 F L 09/25/16 07:00 Pulse 93 09/25/16 08:00 Resp 16 09/25/16 08:00 BP 53/34 L 09/25/16 08:00 Pulse Ox 83 L 09/25/16 07:30 Oxygen Pulse Oxygen Saturation 83 O2 Device Vent Oxygen Flow Rate 2 Fraction of Inspired Oxygen ( 60 FIO2) Intake & Output 09/23/16 09/24/16 09/25/16 09/26/16 06:59 06:59 06:59 06:59 Intake Total 9559 50333 9827 Output Total 1710 1630 2185 Balance 7849 51592 7642 Patient's weight 117.118 kg 127.55 kg 133.084 kg General: Other (Intubated and sedated. Pupils are dilated, she is not responsive to any stimulus.) Neck: Normal Trachea alignment, Normal inspection Respiratory: Diminished Cardiovascular: Regular rate and rhythm GI: Other (Obese abdomen, soft overall, no active bowel sounds, she has a left lower quadrant ostomy which is dusky in appearance. She has open midline incision.) Extremities/Musculoskeletal: Edema (Weeping edema in all 4 extremities.) Lab/DI/Studies Reviewed: Laboratory Tests 09/25/16 09/25/16 09/25/16 03:00 03:00 05:15 WBC 9.2 Hgb 7.7 L D Plt Count 27 L* pH pCO2 pO2 Potassium 5.5 H BUN 28 H Creatinine 2.30 H Calcium 4.1 L* Whole Bld Ioniz Calcium 0.62 L* 09/25/16 05:40 WBC Hgb Plt Count pH 6.990 L* pCO2 40.0 pO2 69.0 L Potassium BUN Creatinine Calcium Whole Bld Ioniz Calcium - Assessment (1) Sepsis Acute A41.9 - SEPSIS, UNSPECIFIED ORGANISM Comment/Plan: She has severe sepsis, which was present at the time of admission. Meeting criteria with low white blood cell count, tachycardia, lactate above 4. Source is now known to be her intra-abdominal colon perforation. She has been treated with sepsis order set. She is on empiric IV antibiotics Zosyn, Flagyl, Zyvox as well as antifungal agent. She is also on vaso active drugs, including William-Synephrine, and dopamine, and vasopressin. At this point, she has overwhelming sepsis and I strongly suggested to the family that we withdraw care later today once they are ready. After several long discussions with family members, and with myself, the patient's daughter was at the bedside has agreed to withdraw care later this afternoon once her is present. Initially, the patient's other daughter lives in [place] was hesitant, but after listening to more details from her sister, she is now in agreement with withdrawal of care. I offered to speak to this daughter who lives in [place], but she declined. (2) Bowel perforation Acute K63.1 - PERFORATION OF INTESTINE (NONTRAUMATIC) Comment/Plan: Initially felt to be possible appendicitis with perforation, patient was taken to the operating room by Dr. Sahu on September 22 and found to have ruptured sigmoid colon. The cause of this rupture is unclear. She had Cortez's pouch procedure with ostomy formation. She has an open abdominal wound. Continue broad-spectrum empiric antibiotics and supportive care as mentioned above. Discussed over the phone with Dr. Sahu this morning. (3) Acute respiratory failure with hypercapnia Acute J96.02 - ACUTE RESPIRATORY FAILURE WITH HYPERCAPNIA Comment/Plan: Patient presented due to shortness of breath and arrived by EMS on 100% non- rebreather. Initial ABG showed hypercapnic respiratory failure, with a pCO2 of 72. She was started on BiPAP in the emergency department, and her numbers improved, so she was placed back on nasal cannula. She then worsened again, and ABG revealed pCO2 of 77 PO2 of 64. Patient was restarted on BiPAP and improved. She was not extubated after operative procedure on September 22. Underlying cause of her hypercapnic respiratory failure was likely worsening sepsis, she still acidotic at this time but her CO2 was normal. As such, I feel that her acidosis is related to metabolic derangements from her severe sepsis and lactic acidosis. 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 Recommend MRI of the abdomen with MRCP once the patient is stabilized. Plan: Patient's family was informed of results by the emergency deparment physician. Patient is acutely ill with a poor prognosis and is in danger of dying. If she does survive her current illness, could consider further evaluation of the possible pancreatic malignancy. 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 This too could be further evaluated with followup nonemergent MRI of the abdomen with and without IV gadolinium after the patient's acute illness has been resolved." Plan: Patient's family was informed of results by the emergency deparment physician. Patient is acutely ill with a poor prognosis and is in danger of dying. If she does survive her current illness, could consider further evaluation of the mass. (6) Thrombocytopenia Acute D69.6 - THROMBOCYTOPENIA, UNSPECIFIED Comment/Plan: Mild. Plan: Monitor CBC. (7) Acute kidney injury superimposed on chronic kidney disease Acute N17.9 - ACUTE KIDNEY FAILURE, UNSPECIFIED; N18.9 - CHRONIC KIDNEY DISEASE, UNSPECIFIED Comment/Plan: Renal failure, related to her sepsis and hypotension. Will hold nephrotoxins as able, closely monitor ins and outs. Treat her severe hypotension as mentioned above. She now has oliguric acute renal failure, creatinine likely not bumping significantly due to low muscle mass and poor nutritional state as evidence by her non-existent albumin level. Her oliguric renal failure is likely related to ATN from severe hypotension related to her sepsis. Discussed at length with her daughter at the bedside on September 23, she understands and is in agreement that her mother is not a candidate for dialysis. (8) Hypotension Acute I95.9 - HYPOTENSION, UNSPECIFIED Qualifiers: Hypotension type: unspecified hypotension type Qualified Code(s): I95.9 - Hypotension, unspecified Comment/Plan: Most likely due to sepsis, but could be multifactorial. Patient initially also volume depleted. Plan: Continue aggressive hydration, continue William-Synephrine and add Levophed this morning. (9) Ankle fracture Acute S82.899A - OTH FRACTURE OF UNSP LOWER LEG, INIT FOR CLOS FX Qualifiers: Encounter type: subsequent encounter Fracture type: closed Laterality: right Fracture healing: with routine healing Qualified Code(s): S82.891D - Other fracture of right lower leg, subsequent encounter for closed fracture with routine healing Comment/Plan: She is status post right ankle fracture with hardware failure in April of 2016. She still has a cast on, and I am concerned that with her increasing peripheral edema, she may develop a compartment syndrome. Dr. Whitney was consulted, and his team has removed her right lower extremity cast. - Plan In summary this patient is acutely and critically ill. The patient requires treatment of vital organ failure and measures to prevent further life- threatening deterioration of the above conditions. I personally reviewed and ordered lab testing, as well as imaging. I reviewed old medical records from previous hospitalizations as available, and spent the time mentioned below in critical care of this patient including counseling and coordination of care. Case Care Discussed with: Consultants, Family, Nursing Staff, Respiratory Therapy Total Time: 135 Critical Care: Yes Couseling Time (>50% in counseling/coordination): Yes
[2016-09-25 15:42] VITALS: PULSE 68
--- NOTE | 2016-09-25 16:00 | PCM.DEATH ---
Discharge Disposition: - Summary Notes Physical Examination: VS- Absent Gen- Pt unresponsive HEENT- Pupils Fixed and dilated. Lungs- Breath sounds absent. Heart- Heart sounds absent [facility] [id number] RAVI KENNEY [id number] Admission Date/Time: 09/21/16 18:37 Admission Diagnoses: Abdominal pain Reason for hospitalization: Severe abdominal pain, lactic acidosis. Significant findings: Patient was initially treated for severe sepsis, was taken to the operating room by Dr. Sahu on September 21 and found to have a large sigmoid colon perforation with stool throughout the abdomen. She was washed out, and transferred to the intensive care unit intubated. Note that on initial CT scan of the abdomen there was concern for appendicitis, they also noted multiple areas of potential neoplasm in the abdomen including around the pancreas. Procedures performed and care, treatment and services provided: Surgery admitted by Dr. Sahu as above. Information provided to the family, as appropriate: Situation was discussed on multiple days and quite length in detail with the patient's daughter Janey who was at the bedside daily. Autopsy plans: None Date/Time of Patient's Expiration: September 25, 2016 at 9:24 a.m.. Cause of (Primary discharge diagnosis): Severe sepsis due to bowel perforation. Final Diagnosis: Severe sepsis, bowel perforation, nausea vomiting, oliguric renal failure, hypercapnic respiratory failure. Active Problems Acquired dilation of bile duct (Acute) K83.[address]: "Moderate intrahepatic biliary ductal dilatation and severe extrahepatic biliary ductal dilatation. This is slightly worse than prior examinations, and may partially reflect benign post cholecystectomy physiology, however, the possibility of biliary tract obstruction should be considered and correlation with liver function tests is recommended." Plan: Management per Dr. Soares. Acute respiratory failure with hypercapnia (Acute) J96.02 Patient presented due to shortness of breath and arrived by EMS on 100% non- rebreather. Initial ABG showed hypercapnic respiratory failure, with a pCO2 of 72. She was started on BiPAP in the emergency department, and her numbers improved, so she was placed back on nasal cannula. She then worsened again, and ABG revealed pCO2 of 77 PO2 of 64. Patient was restarted on BiPAP and improved. She was not extubated after operative procedure on September 22. Underlying cause of her hypercapnic respiratory failure was likely worsening sepsis, she still acidotic at this time but her CO2 was normal. As such, I feel that her acidosis is related to metabolic derangements from her severe sepsis and lactic acidosis. Ankle fracture (Acute) S82.899A She is status post right ankle fracture with hardware failure in April of 2016. She still has a cast on, and I am concerned that with her increasing peripheral edema, she may develop a compartment syndrome. Dr. Whitney was consulted, and his team has removed her right lower extremity cast. Appendicitis (Acute) K37 Bowel perforation (Acute) K63.1 Initially felt to be possible appendicitis with perforation, patient was taken to the operating room by Dr. Sahu on September 22 and found to have ruptured sigmoid colon. The cause of this rupture is unclear. She had Cortez's pouch procedure with ostomy formation. She has an open abdominal wound. Continue broad-spectrum empiric antibiotics and supportive care as mentioned above. Discussed over the phone with Dr. Sahu this morning. Hypercapnic respiratory failure (Acute) J96.92 Metabolic encephalopathy (Acute) G93.41 May be due to hypercapnia, sepsis or other cause. Plan: Search for and address underlying causes. NPO until speech therapy evaluation. 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 Recommend MRI of the abdomen with MRCP once the patient is stabilized. Plan: Patient's family was informed of results by the emergency deparment physician. Patient is acutely ill with a poor prognosis and is in danger of dying. If she does survive her current illness, could consider further evaluation of the possible pancreatic malignancy. 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 This too could be further evaluated with followup nonemergent MRI of the abdomen with and without IV gadolinium after the patient's acute illness has been resolved." Plan: Patient's family was informed of results by the emergency deparment physician. Patient is acutely ill with a poor prognosis and is in danger of dying. If she does survive her current illness, could consider further evaluation of the mass. Perforated sigmoid colon (Acute) K63.1 Ruptured appendicitis (Acute) K35.2 CT of the abdomen/pelvis revealed: "Findings concerning for an acute perforated appendicitis with small volume of pneumoperitoneum and small volume of free fluid. Diffuse haziness throughout the small bowel mesentery concerning for developing peritonitis." Discussed case in detail with Dr. Soares. He reports that while the patient could have appendicitis, she could also have other causes for her abdominal findings. He reports that the patient is too unstable to consider surgery at this time. He recommended IV antibiotics and IV fluids for initial approach. Plan: Admit to ICU. Patient is critically ill and too unstable for surgery. Would not be likely to survive surgery. Cultures ordered. IV antibiotics of IV Zosyn and IV Flagyl. IVF boluses. Prognosis is poor. Sepsis (Acute) A41.9 She has severe sepsis, which was present at the time of admission. Meeting criteria with low white blood cell count, tachycardia, lactate above 4. Source is now known to be her intra-abdominal colon perforation. She has been treated with sepsis order set. She is on empiric IV antibiotics Zosyn, Flagyl, Zyvox as well as antifungal agent. She is also on vaso active drugs, including William- Synephrine, and dopamine, and vasopressin. At this point, she has overwhelming sepsis and I strongly suggested to the family that we withdraw care later today once they are ready. After several long discussions with family members, and with myself, the patient's daughter was at the bedside has agreed to withdraw care later this afternoon once her is present. Initially, the patient' s other daughter lives in [place] was hesitant, but after listening to more details from her sister, she is now in agreement with withdrawal of care. I offered to speak to this daughter who lives in [place], but she declined. Thrombocytopenia (Acute) D69.6 Mild. Plan: Monitor CBC. Hernia, ventral (Chronic) K43.9 Pancreatic mass (Chronic) K86.9 Renal mass (Chronic) N28.89 This is a chronically ill 76-year-old female who was brought to the hospital with abdominal pain, nausea vomiting initial CT scan of the abdomen raise concern for appendicitis. After the patient remained septic and failed to improve, the patient was taken to the operating room for exploratory surgery by Dr. Sahu, who discovered that the patient is status post appendectomy, but had large amount of stool in the abdomen as result of a sigmoid colon perforation. She was washout aggressively, and care was continued in the ICU. The patient remained on the ventilator for the next several days, with worsening oliguric renal failure, severe sepsis, hypotension requiring 3 pressors, and resistant metabolic acidosis. Patient was soon thereafter made a DNR, and she earlier this morning after decision was made by the patient 's 2 daughters to withdraw care due to worsening clinical status and lack of meaningful response to our very complete and aggressive therapies.
== END 2016-09-25 12:30 | disposition expired | DRG 853 ==
LOC: ED 14:58 → ICU 18:37
PROVIDERS: ADMIT Surgery; ATTEND Surgery
PROC: 4A033R1 Measurement of Arterial Saturation, Peripheral, Percutaneous Approach (ICD-10-PCS; 2016-09-21)
PROC: 5A09357 Assistance with Respiratory Ventilation, Less than 24 Consecutive Hours, Continuous Positive Airway Pressure (ICD-10-PCS; 2016-09-21)
PROC: 5A1945Z Respiratory Ventilation, 24-96 Consecutive Hours (ICD-10-PCS; 2016-09-22)
PROC: 0D1M0Z4 Bypass Descending Colon to Cutaneous, Open Approach (ICD-10-PCS; 2016-09-22)
PROC: 0UT50ZZ Resection of Right Fallopian Tube, Open Approach (ICD-10-PCS; 2016-09-22)
PROC: 0UT00ZZ Resection of Right Ovary, Open Approach (ICD-10-PCS; 2016-09-22)
PROC: 0WJG4ZZ Inspection of Peritoneal Cavity, Percutaneous Endoscopic Approach (ICD-10-PCS; 2016-09-22)
PROC: 3E033XZ Introduction of Vasopressor into Peripheral Vein, Percutaneous Approach (ICD-10-PCS; 2016-09-22)
PROC: 02HV33Z Insertion of Infusion Device into Superior Vena Cava, Percutaneous Approach (ICD-10-PCS; 2016-09-22)
PROC: 0D9670Z Drainage of Stomach with Drainage Device, Via Natural or Artificial Opening (ICD-10-PCS; 2016-09-22)
PROC: 0DTN0ZZ Resection of Sigmoid Colon, Open Approach (ICD-10-PCS; principal; 2016-09-22 10:15)
DX: A41.9 Sepsis, unspecified organism (principal); G93.41 Metabolic encephalopathy; K63.1 Perforation of intestine (nontraumatic); J96.02 Acute respiratory failure with hypercapnia; N17.9 Acute kidney failure, unspecified; I13.0 Hypertensive heart and chronic kidney disease with heart failure and stage 1 through stage 4 chronic kidney disease, or unspecified chronic kidney disease; I95.9 Hypotension, unspecified; J44.9 Chronic obstructive pulmonary disease, unspecified; I50.32 Chronic diastolic (congestive) heart failure; K83.8 Other specified diseases of biliary tract; E87.2 Acidosis; Z68.42 Body mass index [BMI] 45.0-49.9, adult; R65.20 Severe sepsis without septic shock; E86.0 Dehydration; K43.9 Ventral hernia without obstruction or gangrene; D69.6 Thrombocytopenia, unspecified; K21.9 Gastro-esophageal reflux disease without esophagitis; F41.9 Anxiety disorder, unspecified; N18.9 Chronic kidney disease, unspecified; I25.10 Atherosclerotic heart disease of native coronary artery without angina pectoris; E66.9 Obesity, unspecified; D37.8 Neoplasm of uncertain behavior of other specified digestive organs; M19.90 Unspecified osteoarthritis, unspecified site; D41.01 Neoplasm of uncertain behavior of right kidney; Z66 Do not resuscitate; I25.2 Old myocardial infarction; S82.891D Other fracture of right lower leg, subsequent encounter for closed fracture with routine healing; X58.XXXD Exposure to other specified factors, subsequent encounter; Z90.49 Acquired absence of other specified parts of digestive tract; Z79.82 Long term (current) use of aspirin; Z87.891 Personal history of nicotine dependence; Z78.1 Physical restraint status
CPT/HCPCS: 31720; 36415; 36430; 36600; 71010; 74177; 80048; 80053; 80069; 81001; 82040; 82330; 82533; 82550; 82803; 82805; 82962; 83605; 83690; 84484; 85007; 85025; 85027; 85610; 85730; 86140; 86850; 86900; 86901; 86920; 87040; 87076; 87086; 87205; 87641; 90656; 93005; 94002; 94003; 94640; 94660; 94770; 96361; 96365; 96375; 96376; 99285; A9698; J0330; J0610; J1265; J1450; J1940; J1956; J2001; J2020; J2250; J2270; J2370; J2543; J2550; J2920; J3010; J3490; J7030; J7050; J7060; J7070; J7620; P9016; P9041; P9059; S0164